=== PATIENT | female | born 1970 | race Caucasian/White ===

== ENCOUNTER 2023-02-03 09:10 | Outpatient (OUT) | payer BC, SELFPAY ==
[2023-02-03 09:29] LABS: Estimated Average Glucose 94 mg/dL; Glycohemoglobin A1C 4.9 % (4.5-6.2)
[2023-02-03 09:30] LABS: Basophils Percent Auto 0.7 % (0.2-2.0); Eosinophils Absolute Auto 0.1 10^3/uL (0.0-0.7); Eosinophils Percent Auto 1.2 % (0.9-7.0); Hematocrit 43.4 % (36.0-48.0); Hemoglobin 14.9 g/dL (12.0-16.0); Immature Granulocytes Abs Auto 0.01 10^3/uL (0.00-0.03); Immature Granulocytes Pct Auto 0.2 % (0.0-0.5); Lymphocytes Absolute Auto 1.2 10^3/uL (1.2-3.8); Lymphocytes Percent Auto 28.9 % (20.5-60.0); Mean Corpuscular HGB Conc 34.3 g/dL (29.9-35.2); Mean Corpuscular Hemoglobin 34.3 pg (26.7-34.0); Mean Platelet Volume 9.5 fL (9.5-13.5); Monocytes Absolute Auto 0.5 10^3/uL (0.3-0.8); Monocytes Percent Auto 11.2 % (1.7-12.0); Neutrophils Absolute Auto 2.4 10^3/uL (1.4-6.5); Neutrophils Percent Auto 57.8 % (43.0-75.0); Platelet Count 322 10^3/uL (150-450); Red Blood Count 4.34 10^6/uL (4.20-5.40); Red Cell Distribution Width 11.9 % (11.0-15.0); White Blood Count 4.2 10^3/uL (4.0-11.0)
[2023-02-03 10:00] LABS: Alanine Aminotransferase 64 U/L (14-59); Albumin Globulin Ratio 1.1; Albumin Level 4.2 g/dL (3.4-5.0); Alkaline Phosphatase 57 U/L (46-116); Anion Gap 14.2; Aspartate Amino Transferase 53 U/L (15-37); BUN Creatinine Ratio 18.8; Bilirubin Total 0.6 mg/dL (0.2-1.0); Calcium 9.3 mg/dL (8.5-10.1); Chloride 100 mmol/L (98-107); Estimated GFR (African America >60 (>=60); Estimated GFR (Non-African Ame >60 (>=60); Globulin 3.8 g/dL; Glucose 111 mg/dL (74-106); Potassium 4.2 mmol/L (3.5-5.1); Sodium 137 mmol/L (136-145)
== END 2023-02-03 09:11 | disposition home or self-care (01) ==
LOC: LAB 09:10
PROVIDERS: PCP Family Medicine; Visit Provider Family Medicine
DX: Z00.00 Encounter for general adult medical examination without abnormal findings (principal)
CPT/HCPCS: 36415; 80053; 83036; 84443; 85025

== ENCOUNTER 2023-02-03 09:18 | Outpatient (OUT) | payer BC, SELFPAY ==
--- NOTE | 2023-02-03 09:27 | MM_ITS ---
Patient: ADELAIDE HERNANDEZ Exam Date: 02/03/2023 : 1970 Gender:F Ordering : DR Rachna Sepulveda M.D. Admission #: [id number] Family : Order #: [id number] CLICK HERE TO VIEW EXAM RADIOLOGY REPORT PROCEDURE: MM TOMOSYNTHESIS SCREENING BI COMPARISON: MG MAMM SCREEN 3D SARATH CAD, 01/31/2022. MG MAMM SCREEN SARATH W CAD, 05/14/2020. MG MAMM SCREEN SARATH W CAD, 05/18/2018. MG MAMM SARATH SCRN W CAD DIG, 03/30/2014. INDICATIONS: Screening Calculator Name NCI Breast Cancer Risk Assessment Tool 5 Year Breast Cancer Risk 0.90% Lifetime Breast Cancer Risk 6.90% Personal Breast Cancer No Personal Ovarian Cancer No Treatments None Family Cancers Father with lung cancer at age 56. LOCATION: [facility] BREAST COMPOSITION: Extremely dense, which lowers the sensitivity of mammography. FINDINGS: DIAGNOSTIC CATEGORY 2--BENIGN FINDING: RIGHT BREAST: No significant suspicious finding. Scattered benign-appearing calcifications are present. No significant change has occurred. LEFT BREAST: No significant suspicious finding. No significant change has occurred. RECOMMENDATIONS: ROUTINE MAMMOGRAM AND CLINICAL EVALUATION IN 12 MONTHS. PLEASE NOTE: A NORMAL MAMMOGRAM DOES NOT EXCLUDE THE POSSIBILITY OF BREAST CANCER. A CLINICALLY SUSPICIOUS PALPABLE LUMP SHOULD BE BIOPSIED. Dictated by: Anish Barriga M.D. on 02/04/2023 at 12:39 Approved by: Anish Barriga M.D. on 02/04/2023 at 12:51
== END 2023-02-03 09:19 | disposition home or self-care (01) ==
LOC: MAMMO 09:18
PROVIDERS: PCP Family Medicine; Visit Provider Family Medicine
DX: Z00.00 Encounter for general adult medical examination without abnormal findings (principal); Z12.31 Encounter for screening mammogram for malignant neoplasm of breast; Z80.1 Family history of malignant neoplasm of trachea, bronchus and lung
CPT/HCPCS: 36415; 77063; 77067; 80053; 83036; 84443; 85025

== ENCOUNTER 2023-04-30 08:00 | Outpatient (OUT) | payer BC, SELFPAY ==
[2023-04-30] MEDS: COVID VAC 23-24(12UP)MODERNA/PF 50 MCG/0.5 ML VIAL IM (16:00)
== END 2023-04-30 08:01 | disposition home or self-care (01) ==
LOC: VACCLI 05-29 16:22
PROVIDERS: PCP Family Medicine
DX: Z23 Encounter for immunization (principal)
CPT/HCPCS: 90480; 91322

== ENCOUNTER 2024-02-09 09:28 | Outpatient (OUT) | payer BC, SELFPAY ==
--- OUTSIDE RECORDS SUMMARY | 2024-02-09 09:33 | XMS_ITS | CCD ---
Author Organization [facility] Care Team Providers Care Biological Technical Officer Name Role Phone DR RACHNA ARCEO Primary Care Unavailable [facility], DR LEONARD Attending Unavailable MISC, DR LEONARD Admitting Unavailable ADIS, DR RACHNA Mccurdy Consulting Unavailable ADIS, DR RACHNA Mccurdy Primary Care Unavailable SEEMA, DR ANISH Almendarez Consulting Unavailable ADIS, DR RACHNA Mccurdy Admitting Unavailable ADIS, DR RACHNA Mccurdy Attending Unavailable ADIS, DR RACHNA Mccurdy Consulting Unavailable LAVONNE, DR CANTU Attending Unavailable LAVONNE, DR CANTU Consulting Unavailable LAVONNE, DR CANTU Admitting Unavailable ADIS, DR RACHNA Mccurdy Primary Care Unavailable Rachna Arceo JUAN TRACY Attending Unavailable Allergies Allergy Classification Reported Allergen(s) Allergy Type Date of Onset Reaction(s) Facility (2 sources) patient allergy list reviewed by nurse or physicia Propensity to adverse reactions Comment:Done [facility] Other (2 sources) Allergies Reconciled Propensity to adverse reactions Unknown [facility] Other Medications Current Medications Medication Drug Class(es) Dates Sig (Normalized) Sig (Original) cloNIDine hydrochloride 0.1 mg oral tablet (4 sources) Central alpha-2 Adrenergic Agonist Start: 09-04-2023 End: 09-24-2023 take 1 tablet by mouth once daily Clonidine Hcl Active 0.1 MG PO Daily 90 September 24, 2023 3:42pm Free[employer]: TAKE 1 TABLET BY MOUTH EVERY DAY; Note: Source Status: Start; Refills: 3; Qty: 90 Tablet; Provider: Adis Briscoe ( ) Start: 02-12-2022 take 1 tablet by jordyn th once daily cloNIDine HCl 0.1MG cloNIDine HCl 0.1MG, 1 (one) Tablet daily # 90, 02/12/2022, Ref. x3. Active Oral daily for 90 *Pick strength-form from [facility] for eRX* Jan, Active escitalopram 20 mg oral tablet (4 sources) Serotonin Reuptake Inhibitor Start: 09-04-2023 End: 09-24-2023 take 1 tablet by mouth once daily Escitalopram Oxalate Active 20 MG PO Daily 90 September 24, 2023 3:43pm [employer]: TAKE 1 TABLET BY MOUTH EVERY DAY; Note: Source Status: Start; Refills: 3; Qty: 90 Tablet; Provider: Adis Briscoe ( ) Start: 02-21-2022 take 1 tablet by jordyn th once daily Lexapro 20MG Lexapro 20MG, 1 (one) Tablet daily # 90, 02/21/2022, Ref. x3. Active Oral daily for 90 *Pick strength-form from [facility] for eRX* Feb, Active fluconazole 150 mg oral tablet (2 sources) Azole Antifungal Diflucan 150 MG 1 tablet Orally for 10 days Active ibuprofen 800 mg oral tablet (5 sources) Nonsteroidal Anti-inflammatory Drug Start: take 1 tablet by mouth three times daily as needed Ibuprofen Active 0 .ROUTE .COMPLEX 270 November 25, 2023 1:01pm TAKE 1 TABLET BY MOUTH 3 TIMES DAILY NEEDED Start: 09-04-2023 End: 11-25-2023 take 1 tablet by mouth three times daily as needed Ibuprofen Discontinued 800 MG PO Three times daily 270 September 24, 2023 3:43pm November 25, 2023 1:02pm [employer]: Ibuprofen 800MG, 1 (one) Tablet three times daily, as needed # 270, 01/02/2022, Ref. x3. Active Oral three times daily, as needed; Note: Source Status: Taking*Pick strength-form from [facility] for eRX*; Refills: 270; Provider: Adis Briscoe ( ) Start: 01-02-2022 take 1 tablet by jordyn th three times daily as needed Ibuprofen 800MG Ibuprofen 800MG, 1 (one) Tablet three times daily, as needed # 270, 01/02/2022, Ref. x3. Active Oral three times daily, as needed for 90 *Pick strength-form from [employer] for eRX* Dec, Active losartan potassium 100 mg oral tablet (4 sources) Angiotensin 2 Receptor Shoaib Start: 09-04-2023 End: 09-24-2023 take 100 mg by mouth once daily Losartan Active 100 MG PO Daily September 24, 2023 3:43pm Start: 01-22-2021 take 1 tablet by jordyn th once daily Losartan Potassium 100MG Losartan Potassium 100MG, 1 (one) Tablet daily # 90, 01/22/2021, Ref. x3. Active Oral daily for 90 *Pick strength-form from [facility] for eRX* Jan, Active Multivitamin preparation (2 sources) Start: 02-12-2022 Multivitamin Multivitamin( Oral 1 daily ) Active -Hx Entry Oral daily for 0 *Pick strength-form from [facility] for eRX* Jan, Active pantoprazole 40 mg delayed release oral tablet (3 sources) Proton Pump Inhibitor Start: 09-04-2023 End: 09-24-2023 take 1 tablet by mouth once daily Pantoprazole Active 40 MG PO Daily September 24, 2023 3:43pm [employer]: TAKE 1 TABLET BY MOUTH EVERY DAY FOR 90 DAYS; Note: Source Status: Start; Refills: 3; Qty: 90 Tablet; Provider: Adis Briscoe ( ) take 1 tablet by jordyn th every twenty-four hours Pantoprazole Sodium 40 MG 1 tablet Orall y Once a day for 90 days Active verapamil hydrochloride 120 mg extended release oral tablet (4 sources) Calcium Channel Shoaib Start: 09-04-2023 End: 09-24-2023 take 1 tablet by mouth once daily Verapamil Active 120 MG PO Daily September 24, 2023 3:43pm [employer]: TAKE 1 TABLET BY MOUTH EVERY DAY; Note: Source Status: Start; Refills: 3; Qty: 90 Tablet; Provider: Adis Briscoe ( ) Start: 02-12-2022 take 1 tablet by jordyn th once daily Verapamil HCl ER 120MG Verapamil HCl ER 120MG, 1 Tablet daily # 90, 02/12/2022, Ref. x3. Active Oral daily for 90 *Pick strength-form from [employer] for eRX* 31 Aug, 2022 Active Problems Active Problems Problem Classification Problem Date Documented Da te Episodic/Chronic Anxiety disorders (2 sources) Anxiety disorder; Translations: [Anxiety disorder, unspecified] Chronic Complications of surgical procedures or medical care (2 sources) Symptomatic postprocedural ovarian failure; 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] Chronic Complications of surgical procedures or medical care (2 sources) Other complications of procedures, not elsewhere classified, initial encounter; Translations: [Oth complications of procedures, NEC, init] Episodic Essential hypertension (4 sources) Essential hypertension; Translations: [Essential (primary) hypertension] Onset: 7 Chronic Menopausal disorders (4 sources) Premenopausal menorrhagia; Translations: [Excessive bleeding in the premenopausal period] Resolved: 0 Chronic Miscellaneous mental health disorders (2 sources) Primary insomnia; Translations: [Primary insomnia] Chronic Osteoarthritis (2 sources) Osteoarthritis; Translations: [Unspecified osteoarthritis, unspecified site] Chronic Other aftercare (2 sources) History and physical examination, follow-up; Translations: [Encounter for follow-up examination after completed treatment for conditions other than malignant neoplasm] Episodic Other circulatory disease (2 sources) H/O: cardiovascular disease; Translations: [Personal history of other diseases of the circulatory system] Episodic Other screening for suspected conditions (not mental disorders or infectious disease) (7 sources) Encounter for screening mammogram for malignant neoplasm of breast; Translations: [Patient encounter status] Onset: 2 Episodic Phlebitis; thrombophlebitis and thromboembolism (4 sources) Thrombophlebitis of superficial veins of lower extremity; Translations: [Phlebitis and thrombophlebitis of superficial vessels of left lower extremity] Episodic Residual codes; unclassified (1 source) Family history of malignant neoplasm of trachea, bronchus and lung; Translations: [FAM HX MALIG NEOPLSM TRACH BRON LNG] Onset: 2 Episodic Residual codes; unclassified (2 sources) Tobacco user; Translations: [Tobacco use] Episodic Residual codes; unclassified (2 sources) Normal body mass index; Translations: [Body mass index (BMI) 24.0-24.9, adult] Episodic Residual codes; unclassified (2 sources) Acquired absence of ovary; Translations: [Acquired absence of ovaries, unilateral] Episodic Varicose veins of lower extremity (2 sources) Pain co-occurrent and due to varicose veins of bilateral legs; Translations: [Varicose veins of bilateral lower extremities with pain] Episodic Past or Other Problems Problem Classification Problem Date Documented Date Episodic/Chronic Acute bronchitis (2 sources) Acute bronchitis; Translations: [Acute bronchitis, unspecified] Onset: 08-16-2018 Episodic Benign neoplasm of uterus (2 sources) Uterine leiomyoma; Translations: [Leiomyoma of uterus, unspecified] Resolved: 01-05-2020 Episodic Cardiac dysrhythmias (2 sources) Tachycardia; Translations: [Tachycardia, unspecified] Onset: 11-19-2016 Episodic Menstrual disorders (4 sources) Intermenstrual bleeding - irregular; Translations: [Excessive and frequent menstruation with irregular cycle] Resolved: 01-05-2020 Chronic Nonspecific chest pain (2 sources) Chest pain; Translations: [Chest pain, unspecified] Onset: 02-08-2015 Episodic Other upper respiratory infections (2 sources) Acute maxillary sinusitis; Translations: [Acute recurrent maxillary sinusitis] Onset: 08-16-2018 Episodic Residual codes; unclassified (2 sources) Postprocedural state finding; Translations: [Other specified postprocedural states] Resolved: 03-02-2020 Episodic Unclassified (1 source) Vaginal yeast infection B37.31 Results Test Name Value Interpretation Reference Range Facil ity MG MAMM SCREEN 3D SARATH CADon 01-31-2022 MG MAMM SCREEN 3D SARATH CAD Patient: ADELAIDE HERNANDEZ Exam Date: 01/31/2022 : 1970 Gender:F Ordering : DR RACHNA ARCEO M.D. Admission #: [id number] Family : Order #: [id number] CLICK HERE TO VIEW EXAM RADIOLOGY REPORT PROCEDURE: MAMMOGRAM SCREENING 3D BILATERAL CAD COMPARISON: MG MAMM SCREEN SARATH W CAD, 05/14/2020. MG MAMM SCREEN SARATH W CAD, 05/18/2018. INDICATIONS: Screening mammography Calculator Name NCI Breast Cancer Risk Assessment Tool 5 Year Breast Cancer Risk 0.90% Lifetime Breast Cancer Risk 7.00% Personal Breast Cancer No Personal Ovarian Cancer No Treatments None Family Cancers Father with lung cancer at age 56. LOCATION: [facility] BREAST COMPOSITION: Extremely dense, which lowers the sensitivity of mammography. FINDINGS: DIAGNOSTIC CATEGORY 2--BENIGN FINDING: RIGHT BREAST: No significant suspicious finding. Scattered benign-appearing calcifications are present. No significant change has occurred. LEFT BREAST: No significant suspicious finding. No significant change has occurred. RECOMMENDATIONS: ROUTINE MAMMOGRAM AND CLINICAL EVALUATION IN 12 MONTHS. PLEASE NOTE: A NORMAL MAMMOGRAM DOES NOT EXCLUDE THE POSSIBILITY OF BREAST CANCER. A CLINICALLY SUSPICIOUS PALPABLE LUMP SHOULD BE BIOPSIED. Dictated by: Anish Barriga M.D. on 01/31/2022 at 11:47 Approved by: Anish Barriga M.D. on 01/31/2022 at 12:[address] [facility] CBC AUTO DIFFon 01-23-2022 BASO # 0.1 103/ul Normal 0.0-0.1 [facility] Comment on above: Performed By: #### C BC #### [facility] [address] [place] [address] Dr. Maria L Spear Basophils/100 WBC (Bld) 0.8 % Normal 0.2-2.0 [facility] Comment on above: Performed By: #### C BC #### [facility] [address] [place] [address] Dr. Maira L Spear EO # 0.2 103/ul Normal 0.0-0.7 [facility] Comment on above: Performed By: #### C BC #### [facility] [address] [place] [address] Dr. Maria L Spear Eosinophils/100 WBC (Bld) 2.5 % Normal 0.9-7.0 [facility] Comment on above: Performed By: #### C BC #### [facility] [address] [place] [address] Dr. Maria L Spear Erythrocyte distribution width (RBC) [Ratio] 12.2 % Normal 11.0-15.0 [facility] Comment on above: Performed By: #### C BC #### [facility] [address] [place] [address] Dr. Maria L Spear Hematocrit (Bld) [Volume fraction] 44.7 % Normal 36.0-48.0 [facility] Comment on above: Performed By: #### C BC #### [facility] [address] [place] [address] Dr. Maria L Spear Hemoglobin (Bld) [Mass/Vol] 15.2 g/dL Normal 12.0-16.0 [facility] Comment on above: Performed By: #### C BC #### [facility] [address] [place] [address] Dr. Maria L Spear IG # 0.02 10e3/ul Normal 0.00-0.03 [facility] Comment on above: Performed By: #### C BC #### [facility] [address] [place] [address] Dr. Maria L Spear IG % 0.3 % Normal 0.0-0.5 [facility] Comment on above: Performed By: #### C BC #### [facility] [address] [place] [address] Dr. Maria L Spear LYMPH # 1.6 103/ul Normal 1.2-3.8 [facility] Comment on above: Performed By: #### C BC #### [facility] [address] [place] [address] Dr. Maria L Spear Lymphocytes/100 WBC (Bld) 26.9 % Normal 20.5-60.0 [facility] Comment on above: Performed By: #### C BC #### [facility] [address] [place] [address] Dr. Maria L Spear MANUAL DIFF REQ NO Normal [facility] Comment on above: Performed By: #### C BC #### [facility] [address] [place] [address] Dr. Maria L Spear MCH (RBC) [Entitic mass] 34.9 pg Critically high 26.7-34.0 [facility] Comment on above: Performed By: #### C BC #### [facility] [address] [place] [address] Dr. Maria L Spear MCHC (RBC) [Mass/Vol] 34.0 g/dL Normal 29.9-35.2 [facility] Comment on above: Performed By: #### C BC #### [facility] [address] [place] [address] Dr. Maria L Spear MCV (RBC) [Entitic vol] 102.8 fL Critically high 81.0-99.0 [facility] Comment on above: Performed By: #### C BC #### [facility] [address] [place] [address] Dr. Maria L Spear MONO # 0.6 103/ul Normal 0.3-0.8 [facility] Comment on above: Performed By: #### C BC #### [facility] [address] [place] [address] Dr. Maria L Spear Monocytes/100 WBC (Bld) 10.7 % Normal 1.7-12.0 [facility] Comment on above: Performed By: #### C BC #### [facility] [address] [place] [address] Dr. Maria L Spear NEUT # 3.5 103/ul Normal 1.4-6.5 [facility] Comment on above: Performed By: #### C BC #### [facility] [address] [place] [address] Dr. Maria L Spear Neutrophils/100 WBC (Bld) 58.8 % Normal 43.0-75.0 [facility] Comment on above: Performed By: #### C BC #### [facility] [address] [place] [address] Dr. Maria L Spear Platelet mean volume (Bld) [Entitic vol] 9.8 fL Normal 9.5-13.5 [facility] Comment on above: Performed By: #### C BC #### [facility] [address] [place] [address] Dr. Maria L Spear PLT 281 103/ul Normal 150-[address] [facility] Comment on above: Performed By: #### C BC #### [facility] [address] [place] [address] Dr. Maria L Spear RBC 4.35 106/ul Normal 4.20-5.[address] [facility] Comment on above: Performed By: #### C BC #### [facility] [address] [place] [address] Dr. Maria L Spear WBC 6.0 103/ul Normal 4.0-11.[address] [facility] Comment on above: Performed By: #### C BC #### [facility] [address] [place] [address] Dr. Maria L Spear GLYCOHEMOGLOBIN A1Con 2021 ADA RECOMMENDATION SEE BELOW Normal [facility] Comment on above: Result Comment: ADA RECOMMENDED LIMIT 4.0 - 6.0 ADA THERAPEUTIC TARGET < 7.0 ACTION SUGGESTED > 7.0 Performed By: #### A 1C #### [facility] [address] [place] [address] Dr. Maria L Spear Glucose [Mass/Vol] 94 mg/dL Normal [facility] Comment on above: Performed By: #### A 1C #### [facility] [address] [place] [address] Dr. Maria L Spear HbA1c (Bld) [Mass fraction] 4.9 % Normal 4.5-6.2 [facility] Comment on above: Performed By: #### A 1C #### [facility] [address] [place] [address] Dr. Maria L Spear LIPID PROFILEon 01-23-2022 CHOL-HDL RATIO NORM SEE BELOW Normal [facility] Comment on above: Result Comment: 3.3 - 4.4 LOW RISK 4.4 - 7.1 AVERAGE RISK 7.1 - 11.0 MODERATE RISK >11.0 HIGH RISK Performed By: #### C MP, LIPID, TSH #### [facility] [address] [place] [address] Dr. Maria L Spear Cholesterol [Mass/Vol] 217 mg/dL Critically high <=200 [facility] Comment on above: Performed By: #### C MP, LIPID, TSH #### [facility] [address] [place] [address] Dr. Maria L Spaer Cholesterol in HDL [Mass/Vol] 65 mg/dL Critically high 40-60 [facility] Comment on above: Performed By: #### C MP, LIPID, TSH #### [facility] [address] [place] [address] Dr. Marai L Spear Cholesterol in LDL [Mass/Vol] 137.4 mg/dL Normal [facility] Comment on above: Performed By: #### C MP, LIPID, TSH #### [facility] [address] [address] [address] Maria L Spear Cholesterol.total/Cho lesterol in HDL [Mass ratio] 3.3 {ratio} Normal [facility] Comment on above: Performed By: #### C MP, LIPID, TSH #### [facility] [address] [address] [address] Maria L Spear HDL NORMAL > or = 60 mg/dl - LOW CARDIOVASCULAR RISK <40 mg/dl - HIGH CARDIOVASCULAR RISK Normal [facility] Comment on above: Performed By: #### C MP, LIPID, TSH #### [facility] [address] [address] [address] Maria L Spear LDL CALC NORMAL SEE BELOW Normal [facility] Comment on above: Result Comment: <100 mg/dl OPTIMAL 100 - 129 mg/dl NEAR OR ABOVE OPTIMAL 130 - 159 mg/dl BORDERLINE HIGH 160 - 189 mg/dl HIGH >190 mg/dl VERY HIGH Performed By: #### C MP, LIPID, TSH #### [facility] [address] [address] [address] Maria L Spear Triglyceride [Mass/Vol] 73 mg/dL Normal <=150 [facility] Comment on above: Performed By: #### C MP, LIPID, TSH #### [facility] [address] [place] [address] Dr. Maria L Spear VLDL CALC 14.6 mg/dL Normal [facility] Comment on above: Performed By: #### C MP, LIPID, TSH #### [facility] [address] [address] [address] Maria L Spear PROF 14(COMP METB)on 022 Albumin [Mass/Vol] 3.9 g/dL Normal 3.4-5.0 [facility] Comment on above: Performed By: #### C MP, LIPID, TSH #### [facility] [address] [place] [address] Dr. Maria L Spear Albumin/Globulin [Mass ratio] 1.1 {ratio} Normal [facility] Comment on above: Performed By: #### C MP, LIPID, TSH #### [facility] [address] [address] [address] Maria L Spear ALP [Catalytic activity/Vol] 64 U/L Normal 46-116 [facility] Comment on above: Performed By: #### C MP, LIPID, TSH #### [facility] [address] [address] [address] Maria L Spear ALT [Catalytic activity/Vol] 34 U/L Normal 14-59 [facility] Comment on above: Performed By: #### C MP, LIPID, TSH #### [facility] [address] [address] [address] Maria L Spear Anion gap [Moles/Vol] 11.7 mmol/L Normal [facility] Comment on above: Performed By: #### C MP, LIPID, TSH #### [facility] [address] [address] [address] Maria L Spear AST [Catalytic activity/Vol] 22 U/L Normal 15-37 [facility] Comment on above: Performed By: #### C MP, LIPID, TSH #### [facility] [address] [address] [address] Maria L Spear Bilirubin [Mass/Vol] 0.6 mg/dL Normal 0.2-1.0 [facility] Comment on above: Performed By: #### C MP, LIPID, TSH #### [facility] [address] [address] [address] Maria L Spear Calcium [Mass/Vol] 8.9 mg/dL Normal 8.5-10.1 [facility] Comment on above: Performed By: #### C MP, LIPID, TSH #### [facility] [address] [address] [address] Maria L Spear Chloride [Moles/Vol] 102 mmol/L Normal 98-107 [facility] Comment on above: Performed By: #### C MP, LIPID, TSH #### [facility] [address] [address] [address] Maria L Spear CO2 [Moles/Vol] 28.4 mmol/L Normal 21.0-32.0 [facility] Comment on above: Performed By: #### C MP, LIPID, TSH #### [facility] [address] [address] [address] Maria L Spear Creatinine [Mass/Vol] 0.77 mg/dL Normal 0.55-1.02 [facility] Comment on above: Performed By: #### C MP, LIPID, TSH #### [facility] [address] [address] [address] Maria L Spear EGFR-AF SALVADOREAN >60 Normal >=60 [facility] Comment on above: Performed By: #### C MP, LIPID, TSH #### [facility] [address] [address] [address] Maria L Spear EGFR-NON AF SALVADOREAN >60 Normal >=60 [facility] Comment on above: Performed By: #### C MP, LIPID, TSH #### [facility] [address] [address] [address] Maria L Spear Globulin (S) [Mass/Vol] 3.5 g/dL Normal [facility] Comment on above: Performed By: #### C MP, LIPID, TSH #### [facility] [address] [address] [address] Maria L Spear Glucose [Mass/Vol] 104 mg/dL Normal 74-106 [facility] Comment on above: Performed By: #### C MP, LIPID, TSH #### [facility] [address] [address] [address] Maria L Spear Potassium [Moles/Vol] 4.1 mmol/L Normal 3.5-5.1 [facility] Comment on above: Performed By: #### C MP, LIPID, TSH #### [facility] [address] [address] [address] Maria L Spear Protein [Mass/Vol] 7.4 g/dL Normal 6.4-8.2 [facility] Comment on above: Performed By: #### C MP, LIPID, TSH #### [facility] [address] [address] [address] Maria L Spear Sodium [Moles/Vol] 138 mmol/L Normal 136-145 [facility] Comment on above: Performed By: #### C MP, LIPID, TSH #### [facility] [address] [address] [address] Maria L Spear Urea nitrogen [Mass/Vol] 13.0 mg/dL Normal 7.0-18.0 [facility] Comment on above: Performed By: #### C MP, LIPID, TSH #### [facility] [address] [address] [address] Maria L Spear Urea nitrogen/Creatinine [Mass ratio] 16.9 mg/mg Normal [facility] Comment on above: Performed By: #### C MP, LIPID, TSH #### [facility] [address] [address] [address] Maria L Spear TSHon 01-23-2022 TSH 2.191 uIU/mL Normal 0.358-3.740 [facility] Comment on above: Performed By: #### C MP, LIPID, TSH #### [facility] [address] [address] [address] Maria L Spear Vital Signs Date Time Vital Sign Value Performing Clinician Faci lity 11-30-2023 09:58-0400 Body height 160.02 cm [facility] 11-30-2023 09:58-0400 Body mass index (BMI) [Ratio] 23.6 kg/m2 [facility] 11-30-2023 09:58-0400 Body weight 60.32 kg [facility] 11-30-2023 09:58-0400 Diastolic blood pressure 87 mm[Hg] [facility] 11-30-2023 09:58-0400 Heart rate 92 /min [facility] 11-30-2023 09:58-0400 Systolic blood pressure 131 mm[Hg] [facility] 01-26-2023 09:00-0400 Body height 160.02 cm Rachna Arcoe Other [facility] Other 01-26-2023 09:00-0400 Body mass index (BMI) [Ratio] 23.2 kg/m2 Rachna Arceo Other [facility] Other 01-26-2023 09:00-0400 Body weight 59.42 kg Rachna Arceo Other [facility] Other 01-26-2023 09:00-0400 Diastolic blood pressure 72 mm[Hg] Rachna Arceo Other [facility] Other 01-26-2023 09:00-0400 Systolic blood pressure 118 mm[Hg] Rachna Arceo Other [facility] Other Encounters Encounter Date Encounter Type Care Provider Facility Start: 12-24-2023 End: 12-24-2023 ambulatory JUAN TRACY Not Available Start: 11-30-2023 Patient encounter status [facility] Start: 11-30-2023 End: 11-30-2023 ambulatory [facility] Work Phone: Start: 11-30-2023 End: 11-30-2023 Encounter for general adult medical examination without abnormal findings [facility] Start: 11-30-2023 End: 11-30-2023 Patient encounter procedure [facility] Work Phone: Start: 09-04-2023 Non-patient / Non-visit [facility] Work Phone: Start: 01-26-2023 End: 01-26-2023 ambulatory Rachna Arceo Other [facility] Other Start: 01-26-2023 Encounter for genera l adult medical examination without abnormal findings Rachna Arceo [facility] Start: 01-26-2023 Periodic preventive med est patient 40-64yrs Rachna Arceo [facility] Start: 01-26-2023 Telephone encounter Rachna Arceo [facility] Start: 04-10-2022 End: 04-11-[address] ALONDRA BANERJEE Facility:[facility] Start: 01-31-2022 End: 02-01-[address] RACHNA ARCEO Facility:[facility] Start: 01-24-2022 Encounter for genera l adult medical examination without abnormal findings DR DOCTOR OLSEN [facility] Start: 01-23-2022 End: 01-24-[address] RACHNA ARCEO Facility:[facility] Start: 01-23-2022 End: 01-24-2022 Encounter for general adult medical examination without abnormal findings DR RACHNA ARCEO Facility:[facility] Start: 12-26-2021 Adult health examination Joaquina Arceo Other [facility] Other Start: 01-19-2020 End: 01-05-2020 Gynecological examination normal Rachna Arceo Other [facility] Other Procedures Date Procedure Procedure Detail Performing Clinician Start: 11-30-2009 Counseling Rachna biggs Other End: 01-05-2020 Counseling Rachna Arceo Other Hysterectomy Rachna Arceo Other End: 01-05-2020 Screening for malignant neoplasm of breast Rachna Arceo Other Screening for malign ant neoplasm of breast Rachna Arceo Other Screening for malign ant neoplasm of colon Rachna Arceo Other Plan of Treatment Date Care Activity Detail Author Comprehensive metabo lic 2000 panel - Serum or Plasma [facility] enter MG Breast - bilateral Screening [facility] Payers Date Payer Category Payer [facility] [id number] 06-15-2019 Unknown [id number] 1970 Unknown [id number] 1970 Unknown [id number] 1970 Unknown [id number] 06-15-1961 Self-pay Unknown [id number] Social History Date Type Detail Facility Unknown if ever smoked [facility] Other Sex Assigned At Sex Assigned At Bir th [facility] Other Start: 1970 Sex Assigned At Female [facility] Evaluation note 01-26-2023 Note Date & Type Note Facility 01-26-2023 Evaluation note Encounter Date Diagnosis Assessment Notes Jan, Well adult exam (ICD-10 - Z00.00) We have discussed the necessity of following up with PCP regularly as well as specialists, as needed. Discussed F/U with dentistry and optometry at least yearly. Discussed all preventative measures/ cancer screenings as applicable to this patient. Emphasized the importance of a reduced fat, low carb diet to promote heart health and controlled blood sugars. Reviewed social history and ensured patient is safe within the home today. Pt denies any abuse of alcohol, nicotine, caffeine or recreational drugs. I have ensured patient is of stable mental and physical health today. We have discussed appropriate F/U schedule as well as blood work and vaccinations that apply. All questions answered and patient is sent home pleased, without concerns. Jan, Screening mammogram, encounter for (ICD-10 - Z12.31) Jan, Vaginal yeast infection (ICD-10 - B37.31) Will treat empirically for yeast, discharge and sx reported consistent with that of vaginal candidiasis. Instructed patient to take as directed, advised that she should feel improvement in about 2 days. May repeat course in 72 hours if sx persist as significant amount of d/c and irritation present today. [facility] Other Evaluation note Note Date & Type Note Facility Evaluation note No Information [facility] Other Evaluation note Note Date & Type Note Facility Evaluation note Diagnosis Onset Date Screening mammogram for breast cancer acute Wellness examination [facility] Work Phone: History general Narrative - Reported Note Date & Type Note Facility History general Narrative - Reported Type Medical History Problem Title : Cere bral Bleed, Problem Status : Active,, Medical History Problem Title : ches t wall assessment, physical exam, Problem Description : chest wall assessment, physical exam, Problem Comment : tenderness and bruising of right lower back and limited range of motion in R shoulder. , Problem Status : Active,, Medical History Problem Title : comp liance with medical treatment, Problem Description : compliance with medical treatment, Problem Comment : Done, Problem Status : Active,, Medical History Problem Title : Depr ession Screening, Problem Description : Depression Screening, Problem Comment : Negative, Problem Status : Active,, Medical History Problem Title : Lase r Facial Rejuv. , Problem Status : Active,, Medical History Problem Title : Lase r Facial Rejuvination, Problem Status : Active,, Medical History Problem Title : MEDI SHERRY: No history of significant medical diseases, Problem Status : Inactive,, Medical History Problem Title : no k nown problems, Problem Description : no known problems, Problem Comment : F, Problem Status : Active,, Medical History Problem Title : past medical history E&M, Problem Description : past medical history E&M, Problem Comment : Cerebral hemorrhage 2011 HTN Paroxysmal SVT, Problem Status : Active,, Medical History Problem Title : past medical history reviewed, Problem Description : past medical history reviewed, Problem Comment : reviewed - no changes required, Problem Status : Active,, Medical History Problem Title : PHQ2 Questionairre Score, Problem Description : PHQ2 Questionairre Score, Problem Comment : 0, Problem Status : Active,, Medical History Problem Title : PHQ9 Question One score, Problem Description : PHQ9 Question One score, Problem Comment : 0, Problem Status : Active,, Medical History Problem Title : PHQ9 Question Two score, Problem Description : PHQ9 Question Two score, Problem Comment : 0, Problem Status : Active,, Medical History Problem Title : Prob lems Reconciled, Problem Status : Active,, Medical History Problem Title : smok ing/tobacco cessation, patient education and counseling, Problem Description : smoking/tobacco cessation, patient education and counseling, Problem Comment : yes, Problem Status : Active,, Medical History Problem Title : MARTINEZ SFUSION HISTORY: No history of receiving blood or blood product transfusion(s), Problem Status : Inactive,, Medical History Problem Title : Vari cose veins, Problem Comment : Patient in this day for f/u evaluation along with left leg limited u/s following Varithena/microfoam chemical ablation 02/23/2020. Medical History Patient states she e xperienced small amount of pain post procedure to left calf area. Patient did not have to take any OTC pain medications stating It wasn't that bad. Medical History Assessment reveals s mall amount of ecchymotic area note to calf area which appears to be healing as expected. No open areas nor s/s of infection noted. Medical History Plan of care has bee n met at this time. Patient to f/u in the future as necessary., Problem Status : Active,, Medical History Problem Title : very low density lipoproteins, Problem Description : very low density lipoproteins, Problem Comment : 32.0, Problem Status : Active,, Surgical History Problem Title : Cerv ical Conization, Problem Status : Active, Surgical History Problem Title : EVLT , Problem Comment : 02/10/2020 Left GSV, Problem Status : Active, Attribute Title : Left, Surgical History Problem Title : EVLT , Problem Comment : 02/10/2020 Left GSV, Problem Status : Active, Attribute Title : Outpatient, Surgical History Problem Title : EVLT , Problem Comment : 02/02/2020 Right SSV, Problem Status : Active, Attribute Title : Outpatient, Surgical History Problem Title : EVLT , Problem Comment : 02/02/2020 Right SSV, Problem Status : Active, Attribute Title : Right, Surgical History Problem Title : Hyst eroscopy D&C, Problem Status : Active, Surgical History Problem Title : No p revious surgery, Problem Status : Inactive, Surgical History Problem Title : Nova Sure Ablation, Problem Status : Active, Surgical History Problem Title : Ooph orectomy; Unilateral, Problem Status : Active, Attribute Title : Right, Surgical History Problem Title : past surgical history reviewed, Problem Description : past surgical history reviewed, Problem Comment : reviewed - no changes required, Problem Status : Inactive, Surgical History Problem Title : Salp ingectomy; Bilateral, Problem Status : Active, Surgical History Problem Title : surg ical procedures, hx of, Problem Description : surgical procedures, hx of, Problem Comment : Hysteroscopy/Novasure 04/2017, Problem Status : Inactive, Surgical History Problem Title : surg ical procedures, hx of, Problem Description : surgical procedures, hx of, Problem Comment : Hysteroscopy/Novasure Ablation 04/2017 (Dr. Soto), Problem Status : Inactive, Surgical History Problem Title : surg ical procedures, hx of, Problem Description : surgical procedures, hx of, Problem Comment : None, Problem Status : Inactive, Surgical History Problem Title : [facility] - Dr. Jaimes , Problem Status : Active, Surgical History Problem Title : Vari thena/microfoam chemical ablation, Problem Status : Active, Attribute Title : Inpatient, [facility] Other Summary Purpose Family History No Family History Records Found Relationship Condition Age at Onset Recorded Date/T sam father Malignant neoplasm Unknown Unknown Not Specified Heart disease Unknown Advance Directives No Advanced Directives Records Found Advance Directive Response Recorded Date/ Time Advance Directives No November 29 9:51am Chief Complaint and Reason for Visit Chief Complaint Amb Documentation wellness Reason for Visit Screening mammogram for breast cancer Wellness examination Additional Source Comments INFORMATION SOURCE (unrecogn ized section and content) DATE CREATED AUTHOR 04/11/2022 [facility] DATE CREATED AUTHOR AUTHOR'S ORGANIZ ATION 12/31/2023 [facility] EPIC REASON FOR VISIT (unrecogniz ed section and content) [facility] Care Teams (unrecognized sec tion and content) Team Status: Active Member Role Status Dates Rachna Arceo MD Primary Care Provider Active Team Status: Active Member Role Status Dates Provider Conversion Primary Care Provider Active Start: September 04, 2023 Dionne Rangel LPN Attending Provider Active S tart: September 04, 2023 Team Status: Inactive Member Role Status Dates Rachna Arceo MD Primary Care Provide r, Attending Provider Active Start: November 30, 2023 End: November 30, 2023 Goals (unrecognized section and content) Goals may be documented in a n alternate section FOR RECORDS PERTAINING TO PATIENTS WHO ARE OR HAVE BEEN ENROLLED IN A CHEMICAL DEPENDENCY/SUBSTANCEABUSE PROGRAM, SOME INFORMATION MAY BE OMITTED. This clinical summary was aggregated from multiple sources. Caution should be exercised in using it in the provision of clinical care. This summary normalizes information from multiple sources, and as a consequence, information in this document may materially change the coding, format and clinical context of patient data. In addition, data may be omitted in some cases. CLINICAL DECISIONS SHOULD BE BASED ON THE PRIMARY CLINICAL RECORDS. [employer] provides no warranty or guarantee of the accuracy or completeness of information in this document.
[2024-02-09 09:58] LABS: Basophils Absolute Auto 0.1 10^3/uL (0.0-0.1); Eosinophils Absolute Auto 0.1 10^3/uL (0.0-0.7); Eosinophils Percent Auto 1.6 % (0.9-7.0); Hematocrit 41.5 % (36.0-48.0); Hemoglobin 14.2 g/dL (12.0-16.0); Immature Granulocytes Abs Auto 0.02 10^3/uL (0.00-0.03); Immature Granulocytes Pct Auto 0.4 % (0.0-0.5); Lymphocytes Absolute Auto 1.3 10^3/uL (1.2-3.8); Lymphocytes Percent Auto 27.5 % (20.5-60.0); Mean Corpuscular HGB Conc 34.2 g/dL (29.9-35.2); Mean Corpuscular Hemoglobin 34.5 pg (26.7-34.0); Mean Platelet Volume 9.8 fL (9.5-13.5); Monocytes Absolute Auto 0.5 10^3/uL (0.3-0.8); Monocytes Percent Auto 9.6 % (1.7-12.0); Neutrophils Absolute Auto 2.9 10^3/uL (1.4-6.5); Neutrophils Percent Auto 59.9 % (43.0-75.0); Platelet Count 284 10^3/uL (150-450); Red Blood Count 4.11 10^6/uL (4.20-5.40); Red Cell Distribution Width 11.9 % (11.0-15.0); White Blood Count 4.9 10^3/uL (4.0-11.0)
[2024-02-09 10:32] LABS: Alanine Aminotransferase 22 U/L (14-59); Albumin Globulin Ratio 1.1; Alkaline Phosphatase 59 U/L (46-116); Anion Gap 15.8; Aspartate Amino Transferase 17 U/L (15-37); Bilirubin Total 0.6 mg/dL (0.2-1.0); Calcium 9.1 mg/dL (8.5-10.1); Carbon Dioxide 24.4 mmol/L (21.0-32.0); Chloride 102 mmol/L (98-107); Chol HDL Ratio 2.5; Cholesterol 244 mg/dL (<=200); Estimated GFR (African America >60 (>=60); Estimated GFR (Non-African Ame >60 (>=60); Globulin 3.7 g/dL; Glucose 102 mg/dL (74-106); HDL Cholesterol 98 mg/dL (40-60); Potassium 4.2 mmol/L (3.5-5.1); Sodium 138 mmol/L (136-145); Thyroid Stimulating Hormone 0.878 uIU/mL (0.358-3.740); Total Protein 7.7 g/dL (6.4-8.2); Triglycerides 61 mg/dL (<=150); VLDL CHOLESTEROL 12.2 mg/dL
== END 2024-02-09 09:29 | disposition home or self-care (01) ==
LOC: LAB 09:29
PROVIDERS: PCP Family Medicine; Visit Provider Family Medicine
DX: Z00.00 Encounter for general adult medical examination without abnormal findings (principal)
CPT/HCPCS: 36415; 80053; 80061; 84443; 85025

== ENCOUNTER 2024-02-09 09:44 | Outpatient (OUT) | payer BC, SELFPAY ==
--- NOTE | 2024-02-09 | MM_ITS ---
Patient Name: ADELAIDE HERNANDEZ MR#: [id number] : 1970 Exam Date: 02/09/2024 Ordering Doctor: DR Rachna Sepulveda M.D. RADIOLOGY REPORT PROCEDURE: MM TOMOSYNTHESIS SCREENING BI COMPARISON: MG MAMM SCREEN 3D SARATH CAD, 01/31/2022. MM TOMOSYNTHESIS SCREENING BI, 02/03/2023. INDICATIONS: Screening for malignant neoplasm Calculator Name NCI Breast Cancer Risk Assessment Tool 5 Year Breast Cancer Risk 1.00% Lifetime Breast Cancer Risk 6.70% Personal Breast Cancer No Personal Ovarian Cancer No Treatments None Family Cancers Father with lung cancer at age 56. LOCATION: [facility] BREAST COMPOSITION: The breasts are extremely dense, which lowers the sensitivity of mammography. FINDINGS: DIAGNOSTIC CATEGORY 2--BENIGN FINDING. NO CHANGE FROM COMPARISON. Scattered benign-appearing calcifications are present. Scattered benign-appearing lymph nodes are present. RIGHT BREAST: No significant suspicious finding. LEFT BREAST: No significant suspicious finding. RECOMMENDATIONS: ROUTINE MAMMOGRAM AND CLINICAL EVALUATION IN 12 MONTHS. PLEASE NOTE: A NORMAL MAMMOGRAM DOES NOT EXCLUDE THE POSSIBILITY OF BREAST CANCER. A CLINICALLY SUSPICIOUS PALPABLE LUMP SHOULD BE BIOPSIED. Dictated by: Slade Miles MD on 02/09/2024 at 10:16 Approved by: Slade Miles MD on 02/09/2024 at 10:17
--- OUTSIDE RECORDS SUMMARY | 2024-02-09 10:05 | XMS_ITS | CCD ---
Author Organization [facility] Care Team Providers Care Mud Jack Nozzleman Name Role Phone DR RACHNA ARCEO Primary Care Unavailable [facility], DR LEONARD Attending Unavailable [facility], DR LEONARD Admitting Unavailable [facility], DR RACHNA Mccurdy Consulting Unavailable ADIS, DR RACHNA Mccurdy Primary Care Unavailable [facility], DR ANISH Almendarez Consulting Unavailable [facility], DR RACHNA Mccurdy Admitting Unavailable ADIS, DR [...] or physicia Propensity to adverse reactions Comment:Done [facility] Other (2 sources) Allergies Reconciled Propensity to adverse reactions Unknown [facility] Other Medications Current Medications Medication Drug Class(es) [...] Oral daily for 90 *Pick strength-form from [facility] for eRX* Jan, Active escitalopram 20 mg [...] Oral daily for 90 *Pick strength-form from [facility] for eRX* Feb, Active fluconazole 150 mg [...] needed; Note: Source Status: Taking*Pick strength-form from [facility] for eRX*; Refills: 270; Provider: Adis Briscoe [...] Oral daily for 90 *Pick strength-form from [facility] for eRX* Jan, Active Multivitamin preparation (2 sources) Start: 02-12-2022 Multivitamin Multivitamin( Oral 1 daily ) Active -Hx Entry Oral daily for 0 *Pick strength-form from [facility] for eRX* Jan, Active pantoprazole 40 mg [...] Oral daily for 90 *Pick strength-form from [facility] for eRX* 31 Aug, 2022 Active Problems [...] : DR RACHNA ARCEO M.D. Admission #: [id number] Family : Order #: [id number] CLICK HERE TO VIEW EXAM RADIOLOGY REPORT [...] lung cancer at age 54. LOCATION: [facility] BREAST COMPOSITION: Extremely dense, which lowers the [...] M.D. on 01/31/2022 at 12:10 Normal [facility] CBC AUTO DIFFon 01-23-2022 BASO # 0.1 103/ul Normal 0.0-0.1 [facility] Comment on above: Performed By: #### C BC #### [facility] [address] [place] [address] Dr. Maria L Spear Basophils/100 WBC (Bld) 0.8 % Normal 0.2-2.0 [facility] Comment on above: Performed By: #### C BC #### [facility] [address] [place] [address] Dr. Maria L Spear EO # 0.2 103/ul Normal 0.0-0.7 [facility] Comment on above: Performed By: #### C BC #### [facility] [address] [place] [address] Dr. Maria L Spear Eosinophils/100 WBC (Bld) 2.5 % Normal 0.9-7.0 [facility] Comment on above: Performed By: #### C BC #### [facility] [address] [place] [address] Dr. Maria L Spear Erythrocyte distribution width (RBC) [Ratio] 12.2 % Normal 11.0-15.0 [facility] Comment on above: Performed By: #### C BC #### [facility] [address] [place] [address] Dr. Maria L Spear Hematocrit (Bld) [Volume fraction] 44.7 % Normal 36.0-48.0 [facility] Comment on above: Performed By: #### C BC #### [facility] [address] [place] [address] Dr. Maria L Spear Hemoglobin (Bld) [Mass/Vol] 15.2 g/dL Normal 12.0-16.0 [facility] Comment on above: Performed By: #### C BC #### [facility] [address] [place] [address] Dr. Maria L Spear IG # 0.02 10e3/ul Normal 0.00-0.03 [facility] Comment on above: Performed By: #### C BC #### [facility] [address] [place] [address] Dr. Maria L Spear IG % 0.3 % Normal 0.0-0.5 [facility] Comment on above: Performed By: #### C BC #### [facility] [address] [place] [address] Dr. Maria L Spear LYMPH # 1.6 103/ul Normal 1.2-3.8 [facility] Comment on above: Performed By: #### C BC #### [facility] [address] [place] [address] Dr. Maria L Spear Lymphocytes/100 WBC (Bld) 26.9 % Normal 20.5-60.0 [facility] Comment on above: Performed By: #### C BC #### [facility] [address] [place] [address] Dr. Maria L Spear MANUAL DIFF REQ NO Normal [facility] Comment on above: Performed By: #### C BC #### [facility] [address] [place] [address] Dr. Maria L Spear MCH (RBC) [Entitic mass] 34.9 pg Critically high 26.7-34.0 [facility] Comment on above: Performed By: #### C BC #### [facility] [address] [place] [address] Dr. Maria L Spear MCHC (RBC) [Mass/Vol] 34.0 g/dL Normal 29.9-35.2 [facility] Comment on above: Performed By: #### C BC #### [facility] [address] [place] [address] Dr. Maria L Spear MCV (RBC) [Entitic vol] 102.8 fL Critically high 81.0-99.0 [facility] Comment on above: Performed By: #### C BC #### [facility] [address] [place] [address] Dr. Maria L Spear MONO # 0.6 103/ul Normal 0.3-0.8 [facility] Comment on above: Performed By: #### C BC #### [facility] [address] [place] [address] Dr. Maria L Spear Monocytes/100 WBC (Bld) 10.7 % Normal 1.7-12.0 [facility] Comment on above: Performed By: #### C BC #### [facility] [address] [place] [address] Dr. Maria L Spear NEUT # 3.5 103/ul Normal 1.4-6.5 [facility] Comment on above: Performed By: #### C BC #### [facility] [address] [place] [address] Dr. Maria L Spear Neutrophils/100 WBC (Bld) 58.8 % Normal 43.0-75.0 [facility] Comment on above: Performed By: #### C BC #### [facility] [address] [place] [address] Dr. Maria L Spear Platelet mean volume (Bld) [Entitic vol] 9.8 fL Normal 9.5-13.5 [facility] Comment on above: Performed By: #### C BC #### [facility] [address] [place] [address] Dr. Maria L Spear PLT 281 103/ul Normal 150-450 [facility] Comment on above: Performed By: #### C BC #### [facility] [address] [place] [address] Dr. Maria L Spear RBC 4.35 106/ul Normal 4.20-5.40 [facility] Comment on above: Performed By: #### C BC #### [facility] [address] [place] [address] Dr. Maria L Spear WBC 6.0 103/ul Normal 4.0-11.0 [facility] Comment on above: Performed By: #### C BC #### [facility] [address] [place] [address] Dr. Maria L Spear GLYCOHEMOGLOBIN A1Con 2021 ADA RECOMMENDATION SEE BELOW Normal [facility] Comment on above: Result Comment: ADA RECOMMENDED LIMIT 4.0 - 6.0 ADA THERAPEUTIC TARGET < 7.0 ACTION SUGGESTED > 7.0 Performed By: #### A 1C #### [facility] [address] [place] [address] Dr. Maria L Spear Glucose [Mass/Vol] 94 mg/dL Normal [facility] Comment on above: Performed By: #### A 1C #### [facility] [address] [place] [address] Dr. Maria L Spear HbA1c (Bld) [Mass fraction] 4.9 % Normal 4.5-6.2 [facility] Comment on above: Performed By: #### A 1C #### [facility] [address] [place] [address] Dr. Maria L Spear LIPID PROFILEon 01-23-2022 CHOL-HDL RATIO NORM SEE BELOW Normal [facility] Comment on above: Result Comment: 3.3 - 4.4 LOW RISK 4.4 - 7.1 AVERAGE RISK 7.1 - 11.0 MODERATE RISK >11.0 HIGH RISK Performed By: #### C MP, LIPID, TSH #### [facility] [address] [place] [address] Dr. Maria L Spear Cholesterol [Mass/Vol] 217 mg/dL Critically high <=200 [facility] Comment on above: Performed By: #### C MP, LIPID, TSH #### [facility] [address] [place] [address] Dr. Maria L Spear Cholesterol in HDL [Mass/Vol] 65 mg/dL Critically high 40-60 [facility] Comment on above: Performed By: #### C MP, LIPID, TSH #### [facility] [address] [place] [address] Dr. Maria L Spear Cholesterol in LDL [Mass/Vol] 137.4 mg/dL Normal [facility] Comment on above: Performed By: #### C MP, LIPID, TSH #### [facility] [address] [address] [address] Maria L Spear Cholesterol.total/Cho lesterol in HDL [Mass ratio] 3.3 {ratio} Normal [facility] Comment on above: Performed By: #### C MP, LIPID, TSH #### [facility] [address] [address] [address] Maria L Spear HDL NORMAL > or = 60 mg/dl - LOW CARDIOVASCULAR RISK <40 mg/dl - HIGH CARDIOVASCULAR RISK Normal [facility] Comment on above: Performed By: #### C MP, LIPID, TSH #### [facility] [address] [address] [address] Maria L Spear LDL CALC NORMAL SEE BELOW Normal [facility] Comment on above: Result Comment: <100 mg/dl OPTIMAL 100 - 129 mg/dl NEAR OR ABOVE OPTIMAL 130 - 159 mg/dl BORDERLINE HIGH 160 - 189 mg/dl HIGH >190 mg/dl VERY HIGH Performed By: #### C MP, LIPID, TSH #### [facility] [address] [address] [address] Maria L Spear Triglyceride [Mass/Vol] 73 mg/dL Normal <=150 [facility] Comment on above: Performed By: #### C MP, LIPID, TSH #### [facility] [address] [place] [address] Dr. Maria L Spear VLDL CALC 14.6 mg/dL Normal [facility] Comment on above: Performed By: #### C MP, LIPID, TSH #### [facility] [address] [address] [address] Maria L Spear PROF 14(COMP METB)on 022 Albumin [Mass/Vol] 3.9 g/dL Normal 3.4-5.0 [facility] Comment on above: Performed By: #### C MP, LIPID, TSH #### [facility] [address] [place] [address] Dr. Maria L Spear Albumin/Globulin [Mass ratio] 1.1 {ratio} Normal [facility] Comment on above: Performed By: #### C MP, LIPID, TSH #### [facility] [address] [address] [address] Maria L Spear ALP [Catalytic activity/Vol] 64 U/L Normal 46-116 [facility] Comment on above: Performed By: #### C MP, LIPID, TSH #### [facility] [address] [address] [address] Maria L Spear ALT [Catalytic activity/Vol] 34 U/L Normal 14-59 [facility] Comment on above: Performed By: #### C MP, LIPID, TSH #### [facility] [address] [address] [address] Maria L Spear Anion gap [Moles/Vol] 11.7 mmol/L Normal [facility] Comment on above: Performed By: #### C MP, LIPID, TSH #### [facility] [address] [address] [address] Maria L Spear AST [Catalytic activity/Vol] 22 U/L Normal 15-37 [facility] Comment on above: Performed By: #### C MP, LIPID, TSH #### [facility] [address] [address] [address] Maria L Spear Bilirubin [Mass/Vol] 0.6 mg/dL Normal 0.2-1.0 [facility] Comment on above: Performed By: #### C MP, LIPID, TSH #### [facility] [address] [address] [address] Maria L Spear Calcium [Mass/Vol] 8.9 mg/dL Normal 8.5-10.1 [facility] Comment on above: Performed By: #### C MP, LIPID, TSH #### [facility] [address] [address] [address] Maria L Spear Chloride [Moles/Vol] 102 mmol/L Normal 98-107 [facility] Comment on above: Performed By: #### C MP, LIPID, TSH #### [facility] [address] [address] [address] Maria L Spear CO2 [Moles/Vol] 28.4 mmol/L Normal 21.0-32.0 [facility] Comment on above: Performed By: #### C MP, LIPID, TSH #### [facility] [address] [address] [address] Maria L Spear Creatinine [Mass/Vol] 0.77 mg/dL Normal 0.55-1.02 [facility] Comment on above: Performed By: #### C MP, LIPID, TSH #### [facility] [address] [address] [address] Maria L Spear EGFR-AF [place]OREAN >60 Normal >=60 [facility] Comment on above: Performed By: #### C MP, LIPID, TSH #### [facility] [address] [address] [address] Maria L Spear EGFR-NON AF [place]OREAN >60 Normal >=60 [facility] Comment on above: Performed By: #### C MP, LIPID, TSH #### [facility] [address] [address] [address] Maria L Spear Globulin (S) [Mass/Vol] 3.5 g/dL Normal [facility] Comment on above: Performed By: #### C MP, LIPID, TSH #### [facility] [address] [address] [address] Maria L Spear Glucose [Mass/Vol] 104 mg/dL Normal 74-106 [facility] Comment on above: Performed By: #### C MP, LIPID, TSH #### [facility] [address] [address] [address] Maria L Spear Potassium [Moles/Vol] 4.1 mmol/L Normal 3.5-5.1 [facility] Comment on above: Performed By: #### C MP, LIPID, TSH #### [facility] [address] [address] [address] Maria L Spear Protein [Mass/Vol] 7.4 g/dL Normal 6.4-8.2 [facility] Comment on above: Performed By: #### C MP, LIPID, TSH #### [facility] [address] [address] [address] Maria L Spear Sodium [Moles/Vol] 138 mmol/L Normal 136-145 [facility] Comment on above: Performed By: #### C MP, LIPID, TSH #### [facility] [address] [address] [address] Maria L Spear Urea nitrogen [Mass/Vol] 13.0 mg/dL Normal 7.0-18.0 [facility] Comment on above: Performed By: #### C MP, LIPID, TSH #### [facility] [address] [address] [address] Maria L Spear Urea nitrogen/Creatinine [Mass ratio] 16.9 mg/mg Normal [facility] Comment on above: Performed By: #### C MP, LIPID, TSH #### [facility] [address] [address] [address] Maria L Spear TSHon 01-23-2022 TSH 2.191 uIU/mL Normal 0.358-3.740 [facility] Comment on above: Performed By: #### C MP, LIPID, TSH #### [facility] [address] [address] [address] Maria L Spear Vital Signs Date Time Vital Sign Value Performing Clinician Faci lity 11-30-2023 09:58-0400 Body height 160.02 cm [facility] 11-30-2023 09:58-0400 Body mass index (BMI) [Ratio] 23.6 kg/m2 [facility] 11-30-2023 09:58-0400 Body weight 60.32 kg [facility] 11-30-2023 09:58-0400 Diastolic blood pressure 87 mm[Hg] [facility] 11-30-2023 09:58-0400 Heart rate 92 /min [facility] 11-30-2023 09:58-0400 Systolic blood pressure 131 mm[Hg] [facility] 01-26-2023 09:00-0400 Body height 160.02 cm Rachna Arceo Other [facility] Other 01-26-2023 09:00-0400 Body mass index (BMI) [Ratio] 23.2 kg/m2 Rachna Arceo Other [facility] Other 01-26-2023 09:00-0400 Body weight 59.42 kg Rachna Arceo Other [facility] Other 01-26-2023 09:00-0400 Diastolic blood pressure 72 mm[Hg] Rachna Arceo Other [facility] Other 01-26-2023 09:00-0400 Systolic blood pressure 118 mm[Hg] Rachna Arceo Other [facility] Other Encounters Encounter Date Encounter Type Care Provider Facility Start: 12-24-2023 End: 12-24-2023 ambulatory JUAN TRACY Not Available Start: 11-30-2023 Patient encounter status [facility] Start: 11-30-2023 End: 11-30-2023 ambulatory [facility] Work Phone: Start: 11-30-2023 End: 11-30-2023 Encounter for general adult medical examination without abnormal findings [facility] Start: 11-30-2023 End: 11-30-2023 Patient encounter procedure [facility] Physician [facility] Work Phone: Start: 09-04-2023 Non-patient / Non-visit [facility] Physician [facility] Work Phone: Start: 01-26-2023 End: 01-26-2023 ambulatory Rachna Arceo Other [facility] Other Start: 01-26-2023 Encounter for genera l adult medical examination without abnormal findings Rachna Arceo [facility] Start: 01-26-2023 Periodic preventive med est patient 40-64yrs Rachna Arceo [facility] Start: 01-26-2023 Telephone encounter Rachna Arceo [facility] Start: 04-10-2022 End: 04-11-[address] ALONDRA BANERJEE Facility:[facility] Start: 01-31-2022 End: 02-01-[address] RACHNA ARCEO Facility:[facility] Start: 01-24-2022 Encounter for genera l adult medical examination without abnormal findings DR DOCTOR OLSEN [facility] Start: 01-23-2022 End: 01-24-[address] RACHNA ARCEO Facility:[facility] Start: 01-23-2022 End: 01-24-2022 Encounter for general adult medical examination without abnormal findings DR RACHNA ARCEO Facility:[facility] Start: 12-26-2021 Adult health examination Joaquina Arceo Other [facility] Other Start: 01-19-2020 End: 01-05-2020 Gynecological examination normal Rachna Arceo Other [facility] Other Procedures Date Procedure Procedure Detail Performing [...] lic 2000 panel - Serum or Plasma [facility] enter MG Breast - bilateral Screening [facility] Payers Date Payer Category Payer [facility] [id number] 2019 Unknown [id number] 1970 Unknown [id number] 1968 Unknown [id number] 1968 Unknown [id number] 1959 Self-pay Unknown [id number] Social History Date Type Detail Facility Unknown if ever smoked [facility] Other Sex Assigned At Sex Assigned At Bir th [facility] Other Start: 1970 Sex Assigned At Female F [facility] Evaluation note 01-26-2023 Note Date & Type [...] amount of d/c and irritation present today. [facility] Other Evaluation note Note Date & Type Note Facility Evaluation note No Information [facility] Other Evaluation note Note Date & Type Note Facility Evaluation note Diagnosis Onset Date Screening mammogram for breast cancer acute Wellness examination [facility] Work Phone: History general Narrative - [...] : Inactive, Surgical History Problem Title : [facility] - Dr. aJimes , Problem Status : Active, Surgical History Problem Title : Vari thena/microfoam chemical ablation, Problem Status : Active, Attribute Title : Inpatient, [facility] Other Summary Purpose Family History No Family [...] and content) DATE CREATED AUTHOR 04/11/2022 [facility] DATE CREATED AUTHOR AUTHOR'S ORGANIZ ATION 12/31/2023 [facility] EPIC REASON FOR VISIT (unrecogniz [...] BE BASED ON THE PRIMARY CLINICAL RECORDS. [email or web address] provides no warranty or guarantee of the accuracy or completeness of information in this document.
== END 2024-02-09 09:45 | disposition home or self-care (01) ==
LOC: MAMMO 09:44
PROVIDERS: PCP Family Medicine; Visit Provider Family Medicine
DX: Z00.00 Encounter for general adult medical examination without abnormal findings (principal); Z12.31 Encounter for screening mammogram for malignant neoplasm of breast; Z80.1 Family history of malignant neoplasm of trachea, bronchus and lung
CPT/HCPCS: 36415; 77063; 77067; 80053; 80061; 84443; 85025

== ENCOUNTER 2025-02-23 12:56 | Outpatient (OUT) | payer BC, SELFPAY ==
--- OUTSIDE RECORDS SUMMARY | 2025-02-23 12:58 | XMS_ITS | Clinical Summary ---
Author Organization [facility] Address [address], [address] [place] [address] Care Team Providers Care Gear Repair Supervisor Name Role Phone Darrell Garay MD Primary Care Provider + Social History Tobacco Use Types Packs/Day Years Used Date Smoking Tobacco: Never Assessed Comments Unknown Sex and Gender Information Value Date Recorded Sex Assigned at Not on file Legal Sex Female 11:38 PM EST Gender Identity Not on file Sexual Orientation Not on file Plan of Treatment Not on file Care Teams Gear Repair Supervisor Relationship Specialty Start Date End Date Darrell Garay MD PCP - General 12/24/11
--- NOTE | 2025-02-23 12:59 | MM_ITS ---
Patient Name: ADELAIDE HERNANDEZ MR#: [id number] : 1970 Exam Date: 02/23/2025 Ordering Doctor: DR LUIS ARCEO M.D. RADIOLOGY REPORT PROCEDURE: MM TOMOSYNTHESIS SCREENING BI COMPARISON: MM TOMOSYNTHESIS SCREENING BI, 02/09/2024. MM TOMOSYNTHESIS SCREENING BI, 02/03/2023. MG MAMM SCREEN 3D SARATH CAD, 01/31/2022. MG MAMM SARATH SCRN W CAD DIG, 03/30/2014. INDICATIONS: Screening Calculator Name NCI Breast Cancer Risk Assessment Tool 5 Year Breast Cancer Risk 1.00% Lifetime Breast Cancer Risk 6.60% Personal Breast Cancer No Personal Ovarian Cancer No Treatments None Family Cancers Father with lung cancer at age 56. LOCATION: [facility] BREAST COMPOSITION: The breasts are heterogeneously dense, which may obscure small masses. FINDINGS: DIAGNOSTIC CATEGORY 1--NEGATIVE. RIGHT BREAST: No significant suspicious finding. LEFT BREAST: No significant suspicious finding. RECOMMENDATIONS: ROUTINE MAMMOGRAM AND CLINICAL EVALUATION IN 12 MONTHS. Dictated by: Duc Lutz DO on 02/23/2025 at 15:27 Approved by: Duc Lutz DO on 02/23/2025 at 15:28
--- OUTSIDE RECORDS SUMMARY | 2025-02-23 13:05 | XMS_ITS | CCD ---
Author Organization [facility] Care Team Providers Care Car Oiler Name Role Phone DR RACHNA ARCEO Primary Care Unavailable MIS, DR LEONARD Attending Unavailable MISC, DR LEONARD Admitting Unavailable ADIS, DR RACHNA Mccurdy Consulting Unavailable ADIS, DR RACHNA Mccurdy Primary Care Unavailable ZIEDE, DR ANISH Almendarez Consulting Unavailable ADIS, DR RACHNA Mccurdy Admitting Unavailable ADIS, DR RACHNA Mccurdy Attending Unavailable ADIS, DR RACHNA Mccurdy Consulting Unavailable LAVONNE, DR CANTU Attending Unavailable LAVONNE, DR CANTU Consulting Unavailable LAVONNE, DR CANTU Admitting Unavailable ADIS, DR RACHNA Mccurdy Primary Care Unavailable Rachna Arceo JUAN TRACY Attending Unavailable Rachna Arceo MD Primary Care Provider [phone] Rachna Arceo MD Attending Provider [phone] Allergies Allergy Classification Reported Allergen(s) Allergy Type Date of Onset Reaction(s) Facility (2 sources) patient allergy list reviewed by nurse or physicia Propensity to adverse reactions Comment:Done [employer] Other (2 sources) Allergies Reconciled Propensity to adverse reactions Unknown [employer] Other Medications Current Medications Medication Drug Class(es) Dates Sig (Normalized) Sig (Original) cloNIDine hydrochloride 0.1 mg oral tablet (10 sources) Central alpha-2 Adrenergic Agonist Start: 03-09-2024 take 1 tablet by mouth once daily Clonidine Hcl 0.1 mg tablet Active 0 .ROUTE .COMPLEX March 09, 2024 1:21pm TAKE 1 TABLET BY MOUTH DAILY Complies with drug therapy Start: 09-04-2023 End: 03-09-2024 take 1 tablet by mouth once daily Clonidine Hcl 0.1 mg tablet Discontinued 0.1 MG PO Daily September 24, 2023 3:42pm March 09, 2024 1:22pm [employer]: TAKE 1 TABLET BY MOUTH EVERY DAY; Note: Source Status: Start; Refills: 3; Qty: 90 Tablet; Provider: Adis Briscoe ( ) Start: 02-12-2022 take 1 tablet by jordyn th once daily cloNIDine HCl 0.1MG cloNIDine HCl 0.1MG, 1 (one) Tablet daily # 90, 02/12/2022, Ref. x3. Active Oral daily for 90 *Pick strength-form from [employer] for eRX* Jan, Active escitalopram 20 mg oral tablet (10 sources) Serotonin Reuptake Inhibitor Start: 03-09-2024 take 1 tablet by mouth once daily Escitalopram Oxalate 20 mg tablet Active 0 .ROUTE .COMPLEX March 09, 2024 1:21pm TAKE 1 TABLET BY MOUTH DAILY Complies with drug therapy Start: 09-04-2023 End: 03-09-2024 take 1 tablet by mouth once daily Escitalopram Oxalate 20 mg tablet Discontinued 20 MG PO Daily September 24, 2023 3:43pm March 09, 2024 1:22pm [employer]: TAKE 1 TABLET BY MOUTH EVERY DAY; Note: Source Status: Start; Refills: 3; Qty: 90 Tablet; Provider: Adis Briscoe ( ) Start: 02-21-2022 take 1 tablet by jordyn th once daily Lexapro 20MG Lexapro 20MG, 1 (one) Tablet daily # 90, 02/21/2022, Ref. x3. Active Oral daily for 90 *Pick strength-form from [employer] for eRX* Feb, Active fluconazole 150 mg oral tablet (2 sources) Azole Antifungal Diflucan 150 MG 1 tablet Orally for 10 days Active ibuprofen 800 mg oral tablet (12 sources) Nonsteroidal Anti-inflammatory Drug Start: End: take 1 tablet by mouth three times daily as needed Ibuprofen 800 mg tablet Active 0 .ROUTE .COMPLEX November 14, 2024 4:18pm TAKE 1 TABLET BY MOUTH 3 TIMES DAILY NEEDED Complies with drug therapy Start: 09-04-2023 End: 11-25-2023 take 1 tablet by mouth three times daily as needed Ibuprofen 800 mg tablet Discontinued 800 MG PO Three times daily September 24, 2023 3:43pm November 25, 2023 1:02pm [employer]: Ibuprofen 800MG, 1 (one) Tablet three times daily, as needed # 270, 01/02/2022, Ref. x3. Active Oral three times daily, as needed; Note: Source Status: Taking*Pick strength-form from [employer] for eRX*; Refills: 270; Provider: Adis Briscoe ( ) Start: 01-02-2022 take 1 tablet by jordyn th three times daily as needed Ibuprofen 800MG Ibuprofen 800MG, 1 (one) Tablet three times daily, as needed # 270, 01/02/2022, Ref. x3. Active Oral three times daily, as needed for 90 *Pick strength-form from [employer] for eRX* Dec, Active losartan potassium 100 mg oral tablet (10 sources) Angiotensin 2 Receptor Shoaib Start: 03-09-2024 take 1 tablet by mouth once daily Losartan 100 mg tablet Active 0 .ROUTE .COMPLEX March 09, 2024 1:21pm TAKE 1 TABLET BY MOUTH DAILY Complies with drug therapy Start: 09-04-2023 End: 03-09-2024 take 1 tablet by mouth once daily Losartan 100 mg tablet Discontinued 100 MG PO Daily September 24, 2023 3:43pm March 09, 2024 1:22pm Start: 01-22-2021 take 1 tablet by jordyn th once daily Losartan Potassium 100MG Losartan Potassium 100MG, 1 (one) Tablet daily # 90, 01/22/2021, Ref. x3. Active Oral daily for 90 *Pick strength-form from [employer] for eRX* Jan, Active Multivitamin preparation (2 sources) Start: 02-12-2022 Multivitamin Multivitamin( Oral 1 daily ) Active -Hx Entry Oral daily for 0 *Pick strength-form from [employer] for eRX* Jan, Active pantoprazole 40 mg delayed release oral tablet (8 sources) Proton Pump Inhibitor Start: 06-23-2024 take 1 tablet by mouth once daily Pantoprazole 40 mg tablet,delayed release (DR/EC) Active 0 .ROUTE .COMPLEX June 23, 2024 1:38pm TAKE 1 TABLET BY MOUTH DAILY Complies with drug therapy Start: 09-04-2023 End: 06-23-2024 take 1 tablet by mouth once daily Pantoprazole 40 mg tablet,delayed release (DR/EC) Discontinued 40 MG PO Daily September 24, 2023 3:43pm June 23, 2024 1:38pm [employer]: TAKE 1 TABLET BY MOUTH EVERY DAY FOR 90 DAYS; Note: Source Status: Start; Refills: 3; Qty: 90 Tablet; Provider: Adis Briscoe ( ) take 1 tablet by ojrdyn th every twenty-four hours Pantoprazole Sodium 40 MG 1 tablet Orally Once a day for 90 days Active temazepam 15 mg oral capsule (2 sources) Benzodiazepine Start: 03-25-2024 take 1 capsule by mouth once daily at bedtime as needed for sleep Temazepam (Restoril) 15 mg capsule Active 15 MG PO Daily at bedtime as needed for sleep March 25, 2024 12:00am Complies with drug therapy verapamil hydrochloride 120 mg extended release oral tablet (10 sources) Calcium Channel Shoaib Start: 03-09-2024 take 1 tablet by mouth once daily Verapamil 120 mg tablet extended release Active 0 .ROUTE .COMPLEX March 09, 2024 1:21pm TAKE 1 TABLET BY MOUTH DAILY Complies with drug therapy Start: 09-04-2023 End: 03-09-2024 take 1 tablet by mouth once daily Verapamil 120 mg tablet extended release Discontinued 120 MG PO Daily September 24, 2023 3:43pm March 09, 2024 1:22pm [employer]: TAKE 1 TABLET BY MOUTH EVERY DAY; Note: Source Status: Start; Refills: 3; Qty: 90 Tablet; Provider: Adis Briscoe ( ) Start: 02-12-2022 take 1 tablet by jordyn th once daily Verapamil HCl ER 120MG Verapamil HCl ER 120MG, 1 Tablet daily # 90, 02/12/2022, Ref. x3. Active Oral daily for 90 *Pick strength-form from [employer] for eRX* Jan, Active Completed/Discontinued Medications Medication Drug Class(es) Dates Sig (Normalized) Sig (Original) ALPRAZolam 0.25 mg oral tablet (2 sources) Benzodiazepine Start: 01-13-2024 End: 03-25-2024 take 1 tablet by mouth once daily at bedtime as needed for anxiety Alprazolam 0.25 mg tablet Discontinued 0.25 MG PO Daily at bedtime as needed for anxiety 10 January 13, 2024 12:00am March 25, 2024 11:11am doxycycline hyclate 50 mg oral tablet (2 sources) Tetracycline-class Drug Start: 01-13-2024 End: 02-01-2025 take 1 tablet by mouth once daily Doxycycline Hyclate 50 mg tablet Discontinued 50 MG PO Daily January 13, 2024 12:00am February 01, 2025 8:29am zolpidem tartrate 5 mg oral tablet (2 sources) gamma-Aminobutyric Acid-ergic Agonist Start: 01-13-2024 End: 03-25-2024 take 1 tablet by mouth once daily at bedtime as needed Zolpidem 5 mg tablet Discontinued 5 MG PO Daily at bedtime as needed for insomnia 03 24January 13, 2024 12:00am March 25, 2024 11:12am Problems Active Problems Problem Classification Problem Date Documented Da te Episodic/Chronic Anxiety disorders (4 sources) Anxiety disorder; Translations: [Anxiety disorder, unspecified] 12-07-2023 Chronic Complications of surgical procedures or medical care (2 sources) Symptomatic postprocedural ovarian failure; 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] Chronic Complications of surgical procedures or medical care (2 sources) Other complications of procedures, not elsewhere classified, initial encounter; Translations: [Oth complications of procedures, NEC, init] Episodic Essential hypertension (6 sources) Essential hypertension; Translations: [Essential (primary) hypertension] Onset: 11-30-2023 Chronic Menopausal disorders (4 sources) Premenopausal menorrhagia; Translations: [Excessive bleeding in the premenopausal period] Resolved: Chronic Miscellaneous mental health disorders (2 sources) [...] conditions (not mental disorders or infectious disease) (11 sources) Encounter for screening mammogram for malignant [...] Translations: [Acquired absence of ovaries, unilateral] Episodic Residual codes; unclassified (2 sources) Insomnia; Translations: [Insomnia, unspecified] 11-30-2023 Episodic Residual codes; unclassified (1 source) Insomnia, unspecified; Translations: [Insomnia, unspecified] 03-25-2024 Episodic Varicose veins of lower extremity (2 [...] Results Test Name Value Interpretation Reference Range Facility Basophils Auto (Bld) [#/Vol] on 02-09-2024 Basophils (Bld) [#/Vol] 0.1 10 3/uL 0.0-0.1 [facility] Basophils/100 WBC Auto (Bld) on 02-09-2024 Basophils/100 WBC (Bld) 1.0 % 0.2-2.0 [facility] Cholesterol in LDL Calc [Mas s/Vol]on 02-09-2024 Cholesterol in LDL [Mass/Vol] 134.0 mg/dL [facility] Comment on above: <100 mg/dl [id number] 0-129 mg/dl NEAR OR ABOVE [id number] mg/dl BORDERLINE [id number] mg/dl HIGH>190 mg/dl VERY HIGH Cholesterol in VLDL Calc [Ma ss/Vol]on 02-09-2024 Cholesterol in VLDL [Mass/Vol] 12.2 mg/dL [facility] Eosinophils/100 WBC Auto (Bl d)on 02-09-2024 Eosinophils/100 WBC (Bld) 1.6 % 0.9-7.0 [facility] Erythrocyte distribution wid th Auto (RBC) [Ratio]on 02-09-2024 Erythrocyte distribution width (RBC) [Ratio] 11.9 % 11.0-15.0 [facility] Estimated glomerular filtrat ion rate (GFR) non- Americanon 02-09-2024 GFR/1.73 sq M.predicted among non-blacks MDRD (S/P/Bld) [Vol rate/Area] mL/min/{1.73_m2} >=60 [facility] Globulin Calc (S) [Mass/Vol] on 02-09-2024 Globulin (S) [Mass/Vol] 3.7 g/dL [facility] Hematocrit Auto (Bld) [Volum e fraction]on 02-09-2024 Hematocrit (Bld) [Volume fraction] 41.5 % 36.0-48.0 [facility] Hemoglobin [Mass/volume] in Bloodon 02-09-2024 Hemoglobin (Bld) [Mass/Vol] 14.2 g/dL 12.0-16.0 [facility] Laboratory - Chemistry and C hemistry - challengeon 02-09-2024 Albumin [Mass/Vol] 4.0 g/dL 3.4-5.0 [facility] ALP [Catalytic activity/Vol] 59 U/L 46-116 [facility] ALT [Catalytic activity/Vol] 22 U/L 14-59 [facility] AST [Catalytic activity/Vol] 17 U/L 15-37 [facility] Bilirubin [Mass/Vol] 0.6 mg/dL 0.2-1.0 [facility] Calcium [Mass/Vol] 9.1 mg/dL 8.5-10.1 [facility] Chloride [Moles/Vol] 102 mmol/L 98-107 [facility] Cholesterol [Mass/Vol] 244 mg/dL High <=200 [facility] Cholesterol in HDL [Mass/Vol] 98 mg/dL High 40-60 [facility] Comment on above: > or =60 mg/dl - LOW CARDIOVASCULAR RISK<40 mg/dl - HIGH CARDIOVASCULAR RISK CO2 [Moles/Vol] 24.4 mmol/L 21.0-32.0 [facility] Creatinine [Mass/Vol] 0.79 mg/dL 0.55-1.02 [facility] GFR/1.73 sq M.predicted MDRD (S/P/Bld) [Vol rate/Area] mL/min/{1.73_m2} >=60 [facility] Glucose [Mass/Vol] 102 mg/dL 74-106 [facility] Potassium [Moles/Vol] 4.2 mmol/L 3.5-5.1 [facility] Protein [Mass/Vol] 7.7 g/dL 6.4-8.2 [facility] Sodium [Moles/Vol] 138 mmol/L 136-145 [facility] Triglyceride [Mass/Vol] 61 mg/dL <=150 [facility] TSH Qn 0.878 m[IU]/L 0.358-3.740 [facility] Urea nitrogen [Mass/Vol] 15.0 mg/dL 7.0-18.0 [facility] Urea nitrogen/Creatinine [Mass ratio] 19.0 mg/mg [facility] Laboratory - Hematology and Cell countson 02-09-2024 Immature granulocytes/100 WBC (Bld) 0.4 % 0.0-0.5 [facility] Leukocytes [#/volume] correc guillermo for nucleated erythrocytes in Blood by Automated counon 02-09-2024 WBC corrected for nucl RBC Auto (Bld) [#/Vol] 4.9 10 3/uL 4.0-11.0 [facility] Lymphocytes Auto (Bld) [#/Vo l]on 02-09-2024 Lymphocytes (Bld) [#/Vol] 1.3 10 3/uL 1.2-3.8 [facility] Lymphocytes/100 WBC Auto (Bl d)on 02-09-2024 Lymphocytes/100 WBC (Bld) 27.5 % 20.5-60.0 [facility] MCH Auto (RBC) [Entitic mass ]on 02-09-2024 MCH (RBC) [Entitic mass] 34.5 pg High 26.7-34.0 [facility] MCHC Auto (RBC) [Mass/Vol]on 02-09-2024 MCHC (RBC) [Mass/Vol] 34.2 g/dL 29.9-35.2 [facility] MCV Auto (RBC) [Entitic vol] on 02-09-2024 MCV (RBC) [Entitic vol] 101.0 fL High 81.0-99.0 [facility] Monocytes Auto (Bld) [#/Vol] on 02-09-2024 Monocytes (Bld) [#/Vol] 0.5 10 3/uL 0.3-0.8 [facility] Monocytes/100 WBC Auto (Bld) on 02-09-2024 Monocytes/100 WBC (Bld) 9.6 % 1.7-12.0 [facility] Neutrophils Auto (Bld) [#/Vo l]on 02-09-2024 Neutrophils (Bld) [#/Vol] 2.9 10 3/uL 1.4-6.5 [facility] Neutrophils/100 WBC Auto (Bl d)on 02-09-2024 Neutrophils/100 WBC (Bld) 59.9 % 43.0-75.0 [facility] No Panel Informationon 02-08 Eosinophils # (Auto) 0.1 10 3/uL 0.0-0.7 [facility] Immature Granulocyte # (Auto) 0.02 10 3/uL 0.00-0.03 [facility] Platelet mean volume Auto (B ld) [Entitic vol]on 02-09-2024 Platelet mean volume (Bld) [Entitic vol] 9.8 fL 9.5-13.5 [facility] Platelets Auto (Bld) [#/Vol] on 02-09-2024 Platelets (Bld) [#/Vol] 284 10 3/uL 150-450 [facility] RBC Auto (Bld) [#/Vol]on RBC (Bld) [#/Vol] 4.11 10 6/uL Low 4.20-5.40 [facility] Serum or plasma albumin/glob ulin mass ratioon 02-09-2024 Albumin/Globulin [Mass ratio] 1.1 {ratio} [facility] Serum or plasma anion gap de terminationon 02-09-2024 Anion gap [Moles/Vol] 15.8 mmol/L [facility] Serum or plasma total choles terol/high density lipoprotein (HDL) cholesterol mass tri 02-09-2024 Cholesterol.total/Cho lesterol in HDL [Mass ratio] 2.5 {ratio} [facility] Comment on above: 3.3 - 4.4 LOW RISK4. 4 - 7.1 AVERAGE RISK7.1 - 11.0 MODERATE RISK>11.0 HIGH RISK MG MAMM SCREEN 3D SARATH CADon 01-31-2022 MG MAMM SCREEN 3D SARATH CAD Patient: CORINA CALDERON Exam Date: 01/31/2022 : 1970 Gender:F Ordering : DR RACHNA ARCEO M.D. Admission #: [id number] Family : Order #: [id number] CLICK HERE TO VIEW EXAM RADIOLOGY REPORT [...] lung cancer at age 54. LOCATION: [facility] BREAST COMPOSITION: Extremely dense, which lowers the [...] M.D. on 01/31/2022 at 12:10 Normal [facility] CBC AUTO DIFFon 01-23-2022 BASO # 0.1 103/ul Normal 0.0-0.1 [facility] Comment on above: Performed By: #### C BC #### [facility] [address] [address] [address] Maria L Spear Basophils/100 WBC (Bld) 0.8 % Normal 0.2-2.0 [facility] Comment on above: Performed By: #### C BC #### [facility] [address] [address] [address] Maria L Spear EO # 0.2 103/ul Normal 0.0-0.7 [facility] Comment on above: Performed By: #### C BC #### [facility] [address] [address] [address] Maria L Spear Eosinophils/100 WBC (Bld) 2.5 % Normal 0.9-7.0 [facility] Comment on above: Performed By: #### C BC #### [facility] [address] [address] [address] Maria L Spear Erythrocyte distribution width (RBC) [Ratio] 12.2 % Normal 11.0-15.0 [facility] Comment on above: Performed By: #### C BC #### [facility] [address] [address] [address] Maria L Spear Hematocrit (Bld) [Volume fraction] 44.7 % Normal 36.0-48.0 [facility] Comment on above: Performed By: #### C BC #### [facility] [address] [address] [address] Maria L Spear Hemoglobin (Bld) [Mass/Vol] 15.2 g/dL Normal 12.0-16.0 [facility] Comment on above: Performed By: #### C BC #### [facility] [address] [address] [address] Maria L Spear IG # 0.02 10e3/ul Normal 0.00-0.03 [facility] Comment on above: Performed By: #### C BC #### [facility] [address] [place] [address] Dr. Maria L Spear IG % 0.3 % Normal 0.0-0.5 [facility] Comment on above: Performed By: #### C BC #### [facility] [address] [place] [address] Dr. Maria L Spear LYMPH # 1.6 103/ul Normal 1.2-3.8 [facility] Comment on above: Performed By: #### C BC #### [facility] [address] [place] [address] Dr. Maria L Spear Lymphocytes/100 WBC (Bld) 26.9 % Normal 20.5-60.0 [facility] Comment on above: Performed By: #### C BC #### [facility] [address] [place] [address] Dr. Maria L Spear MANUAL DIFF REQ NO Normal [facility] Comment on above: Performed By: #### C BC #### [facility] [address] [place] [address] Dr. Maria L Spear MCH (RBC) [Entitic mass] 34.9 pg Critically high 26.7-34.0 [facility] Comment on above: Performed By: #### C BC #### [facility] [address] [address] [address] Maria L Spear MCHC (RBC) [Mass/Vol] 34.0 g/dL Normal 29.9-35.2 [facility] Comment on above: Performed By: #### C BC #### [facility] [address] [address] [address] Maria L Spear MCV (RBC) [Entitic vol] 102.8 fL Critically high 81.0-99.0 [facility] Comment on above: Performed By: #### C BC #### [facility] [address] [address] [address] Maria L Spear MONO # 0.6 103/ul Normal 0.3-0.8 [facility] Comment on above: Performed By: #### C BC #### [facility] [address] [place] [address] Dr. Maria L Spear Monocytes/100 WBC (Bld) 10.7 % Normal 1.7-12.0 [facility] Comment on above: Performed By: #### C BC #### [facility] [address] [place] [address] Dr. Maria L Spear NEUT # 3.5 103/ul Normal 1.4-6.5 [facility] Comment on above: Performed By: #### C BC #### [facility] [address] [place] [address] Dr. Maria L Spear Neutrophils/100 WBC (Bld) 58.8 % Normal 43.0-75.0 [facility] Comment on above: Performed By: #### C BC #### [facility] [address] [place] [address] Dr. Maria L Spear Platelet mean volume (Bld) [Entitic vol] 9.8 fL Normal 9.5-13.5 [facility] Comment on above: Performed By: #### C BC #### [facility] [address] [place] [address] Dr. Maria L Spear PLT 281 103/ul Normal 150-450 [facility] Comment on above: Performed By: #### C BC #### [facility] [address] [address] [address] Maria L Spear RBC 4.35 106/ul Normal 4.20-5.40 [facility] Comment on above: Performed By: #### C BC #### [facility] [address] [place] [address] Dr. Maria L Spear WBC 6.0 103/ul Normal 4.0-11.0 [facility] Comment on above: Performed By: #### C BC #### [facility] [address] [place] [address] Dr. Maria L Spear GLYCOHEMOGLOBIN A1Con 2021 ADA RECOMMENDATION SEE BELOW Normal [facility] Comment on above: Result Comment: ADA RECOMMENDED LIMIT 4.0 - 6.0 ADA THERAPEUTIC TARGET < 7.0 ACTION SUGGESTED > 7.0 Performed By: #### A 1C #### [facility] [address] [place] [address] Dr. Maria L Spear Glucose [Mass/Vol] 94 mg/dL Normal [facility] Comment on above: Performed By: #### A 1C #### [facility] [address] [place] [address] Dr. Maria L Spear HbA1c (Bld) [Mass fraction] 4.9 % Normal 4.5-6.2 [facility] Comment on above: Performed By: #### A 1C #### [facility] [address] [place] [address] Dr. Maria L Spear LIPID PROFILEon 01-23-2022 CHOL-HDL RATIO NORM SEE BELOW Normal [facility] Comment on above: Result Comment: 3.3 - 4.4 LOW RISK 4.4 - 7.1 AVERAGE RISK 7.1 - 11.0 MODERATE RISK >11.0 HIGH RISK Performed By: #### C MP, LIPID, TSH #### [facility] [address] [place] [address] Dr. Maria L Spear Cholesterol [Mass/Vol] 217 mg/dL Critically high <=200 [facility] Comment on above: Performed By: #### C MP, LIPID, TSH #### [facility] [address] [place] [address] Dr. Maria L Spear Cholesterol in HDL [Mass/Vol] 65 mg/dL Critically high 40-60 [facility] Comment on above: Performed By: #### C MP, LIPID, TSH #### [facility] [address] [address] [address] Maria L Spear Cholesterol in LDL [Mass/Vol] 137.4 mg/dL Normal [facility] Comment on above: Performed By: #### C MP, LIPID, TSH #### [facility] [address] [address] [address] Maria L Spear Cholesterol.total/Cho lesterol in HDL [Mass ratio] 3.3 {ratio} Normal [facility] Comment on above: Performed By: #### C MP, LIPID, TSH #### [facility] [address] [address] [address] Maria L Spear HDL NORMAL > or = 60 mg/dl - LOW CARDIOVASCULAR RISK <40 mg/dl - HIGH CARDIOVASCULAR RISK Normal [facility] Comment on above: Performed By: #### C MP, LIPID, TSH #### [facility] [address] [address] [address] Maria L Spear LDL CALC NORMAL SEE BELOW Normal [facility] Comment on above: Result Comment: <100 mg/dl OPTIMAL 100 - 129 mg/dl NEAR OR ABOVE OPTIMAL 130 - 159 mg/dl BORDERLINE HIGH 160 - 189 mg/dl HIGH >190 mg/dl VERY HIGH Performed By: #### C MP, LIPID, TSH #### [facility] [address] [address] [address] Maria L Spear Triglyceride [Mass/Vol] 73 mg/dL Normal <=150 [facility] Comment on above: Performed By: #### C MP, LIPID, TSH #### [facility] [address] [address] [address] Maria L Spear VLDL CALC 14.6 mg/dL Normal [facility] Comment on above: Performed By: #### C MP, LIPID, TSH #### [facility] [address] [address] [address] Maria L Spear PROF 14(COMP METB)on 022 Albumin [Mass/Vol] 3.9 g/dL Normal 3.4-5.0 [facility] Comment on above: Performed By: #### C MP, LIPID, TSH #### [facility] [address] [address] [address] Maria L Spear Albumin/Globulin [Mass ratio] 1.1 {ratio} Normal [facility] Comment on above: Performed By: #### C MP, LIPID, TSH #### [facility] [address] [address] [address] Maria L Spear ALP [Catalytic activity/Vol] 64 U/L Normal 46-116 [facility] Comment on above: Performed By: #### C MP, LIPID, TSH #### [facility] [address] [place] [address] Dr. Maria L Spear ALT [Catalytic activity/Vol] 34 U/L Normal 14-59 [facility] Comment on above: Performed By: #### C MP, LIPID, TSH #### [facility] [address] [place] [address] Dr. Maria L Spear Anion gap [Moles/Vol] 11.7 mmol/L Normal [facility] Comment on above: Performed By: #### C MP, LIPID, TSH #### [facility] [address] [place] [address] Dr. Maria L Spear AST [Catalytic activity/Vol] 22 U/L Normal 15-37 [facility] Comment on above: Performed By: #### C MP, LIPID, TSH #### [facility] [address] [place] [address] Dr. Maria L Spear Bilirubin [Mass/Vol] 0.6 mg/dL Normal 0.2-1.0 [facility] Comment on above: Performed By: #### C MP, LIPID, TSH #### [facility] [address] [place] [address] Dr. Maria L Spear Calcium [Mass/Vol] 8.9 mg/dL Normal 8.5-10.1 [facility] Comment on above: Performed By: #### C MP, LIPID, TSH #### [facility] [address] [place] [address] Dr. Maria L Spear Chloride [Moles/Vol] 102 mmol/L Normal 98-107 [facility] Comment on above: Performed By: #### C MP, LIPID, TSH #### [facility] [address] [place] [address] Dr. Maria L Spear CO2 [Moles/Vol] 28.4 mmol/L Normal 21.0-32.0 [facility] Comment on above: Performed By: #### C MP, LIPID, TSH #### [facility] [address] [address] [address] Maria L Spear Creatinine [Mass/Vol] 0.77 mg/dL Normal 0.55-1.02 [facility] Comment on above: Performed By: #### C MP, LIPID, TSH #### [facility] [address] [place] [address] Dr. Maria L Spear EGFR-AF [place] >60 Normal >=60 [facility] Comment on above: Performed By: #### C MP, LIPID, TSH #### [facility] [address] [place] [address] Dr. Maria L Spear EGFR-NON AF [place] >60 Normal >=60 [facility] Comment on above: Performed By: #### C MP, LIPID, TSH #### [facility] [address] [place] [address] Dr. Maria L Spear Globulin (S) [Mass/Vol] 3.5 g/dL Normal [facility] Comment on above: Performed By: #### C MP, LIPID, TSH #### [facility] [address] [place] [address] Dr. Maria L Spear Glucose [Mass/Vol] 104 mg/dL Normal 74-106 [facility] Comment on above: Performed By: #### C MP, LIPID, TSH #### [facility] [address] [place] [address] Dr. Maria L Spear Potassium [Moles/Vol] 4.1 mmol/L Normal 3.5-5.1 [facility] Comment on above: Performed By: #### C MP, LIPID, TSH #### [facility] [address] [place] [address] Dr. Maria L Spear Protein [Mass/Vol] 7.4 g/dL Normal 6.4-8.2 [facility] Comment on above: Performed By: #### C MP, LIPID, TSH #### [facility] [address] [address] [address] Maria L Spear Sodium [Moles/Vol] 138 mmol/L Normal 136-145 [facility] Comment on above: Performed By: #### C MP, LIPID, TSH #### [facility] [address] [place] [address] Dr. Maria L Spear Urea nitrogen [Mass/Vol] 13.0 mg/dL Normal 7.0-18.0 [facility] Comment on above: Performed By: #### C MP, LIPID, TSH #### [facility] [address] [place] [address] Dr. Maria L Spear Urea nitrogen/Creatinine [Mass ratio] 16.9 mg/mg Normal [facility] Comment on above: Performed By: #### C MP, LIPID, TSH #### [facility] [address] [place] [address] Dr. Maria L Spear TSHon 01-23-2022 TSH 2.191 uIU/mL Normal 0.358-3.740 [facility] Comment on above: Performed By: #### C MP, LIPID, TSH #### [facility] [address] [place] [address] Dr. Maria L Spear Vital Signs Date Time Vital Sign Value Performing Clinician Kevin laura 02-01-2025 08:28-040 Body height 157.48 cm Rachna Arceo MD Work Phone: [facility] 02-01-2025 [id number] Body mass index (BMI) [Ratio] 25.2 kg/m2 Rachna Arceo MD Work Phone: [facility] 02-01-2025 [id number] Body weight 62.59 kg Rachna Arceo MD Work Phone: [facility] 02-01-2025 08:28-0400 Diastolic blood pressure 78 mm[Hg] Rachna Arceo MD Work Phone: [facility] 02-01-2025 08:28-0400 Heart rate 82 /min Rachna Arceo MD Work Phone: [facility] 02-01-2025 08:28-0400 Systolic blood pressure 128 mm[Hg] Rachna Arceo MD Work Phone: [facility] 11-30-2023 09:58-0400 Body height 160.02 cm [facility] 11-30-2023 09:58-0400 Body mass index (BMI) [Ratio] 23.6 kg/m2 [facility] 11-30-2023 09:58-0400 Body weight 60.32 kg [facility] 11-30-2023 09:58-0400 Diastolic blood pressure 87 mm[Hg] [facility] 11-30-2023 09:58-0400 Heart rate 92 /min [facility] 11-30-2023 09:58-0400 Systolic blood pressure 131 mm[Hg] [facility] 01-26-2023 09:00-0400 Body height 160.02 cm Rachna Arceo Other [facility] Other 01-26-2023 09:00-0400 Body mass index (BMI) [Ratio] 23.2 kg/m2 Rachna Arceo Other [facility] Other 01-26-2023 09:00-0400 Body weight 59.42 kg Rachna Arceo Other [facility] [employer] [employer] Other 01-26-2023 09:00-0400 Diastolic blood pressure 72 mm[Hg] Rachna Arceo Other [facility] Other 01-26-2023 09:00-0400 Systolic blood pressure 118 mm[Hg] Rachna Arceo Other [facility] Other Encounters Encounter Date Encounter Type Care Provider Facility Start: 02-01-2025 End: 02-01-2025 ambulatory Rachna Arceo MD Work Phone: [facility] Work Phone: Start: 02-01-2025 End: 02-01-2025 Patient encounter procedure Rachna Arceo MD -[facility] Work Phone: Start: 02-01-2025 End: 02-01-2025 Patient encounter status Rachna Arceo MD [facility] Start: 03-25-2024 End: 03-25-2024 ambulatory [facility] Work Phone: Start: 03-25-2024 End: 03-25-2024 Patient encounter procedure [facility] Work Phone: Start: 02-09-2024 Non-patient / Non-visit [facility] Work Phone: Start: 12-24-2023 End: 12-24-2023 ambulatory JUAN TRACY Not Available Start: 11-30-2023 Patient encounter status [facility] Start: 11-30-2023 End: 11-30-2023 ambulatory [facility] Work Phone: Start: 11-30-2023 End: 11-30-2023 Encounter for general adult medical examination without abnormal findings [facility] Start: 11-30-2023 End: 11-30-2023 Patient encounter procedure [facility] Work Phone: Start: 09-04-2023 Non-patient / Non-visit [facility] Work Phone: Start: 01-26-2023 End: 01-26-2023 ambulatory Rachna Arceo Other [facility] Other Start: 01-26-2023 Encounter for genera l adult medical examination without abnormal findings Rachna Arceo [facility] Start: 01-26-2023 Periodic preventive med est patient 40-64yrs Rachna Arceo [facility] Start: 01-26-2023 Telephone encounter Rachna Arceo [facility] Start: 04-10-2022 End: 04-11-[address] ALONDRA BANERJEE Facility:[facility] Start: 01-31-2022 End: 02-01-[address] RACHNA ARCEO Facility:[facility] Start: 01-24-2022 Encounter for genera l adult medical [facility] Start: 01-23-2022 End: 01-24-[address] RACHNA ARCEO Facility:[facility] Start: 01-23-2022 End: 01-24-2022 Encounter for general adult medical examination without abnormal findings DR RACHNA ARCEO Facility:[facility] Start: 12-26-2021 Adult health examination Joaquina Arceo Other [employer] Other Start: 01-19-2020 End: 01-05-2020 Gynecological examination normal Rachna Arceo Other [employer] Other Procedures Date Procedure Procedure Detail Performing [...] Care Activity Detail Author Comprehensive metabo lic 1999 panel - Serum or Plasma [facility] enter Comprehensive metabo lic 1999 panel - Serum or Plasma [facility] enter MG Breast - bilateral Screening [facility] Payers Date Payer Category Payer [facility] [id number] 2019 Unknown [id number] 1970 Unknown [id number] [id number] 1968 Unknown [id number] 1968 Unknown [id number] 1959 Self-pay Unknown [id number] Social History Date Type Detail Facility Unknown if ever smoked [facility] [employer] Other Sex Assigned At Sex Assigned At [facility] Other Start: 1970 Sex Assigned At Female [facility] Tobacco smoking status NHIS Unknown if ever smoked [facility] Work Phone: Sex Female (finding) [facility] NEGATED: Highlighted row N [facility] Evaluation note 01-26-2023 Note Date & Type [...] amount of d/c and irritation present today. [employer] Other Evaluation note Note Date & Type Note Facility Evaluation note No Information [facility] [employer] Other Evaluation note Note Date & Type Note Facility Evaluation note Diagnosis Onset Date Screening mammogram for breast cancer acute Wellness examination acute [facility] Work Phone: Evaluation note Note Date & Type Note Facility Evaluation note Diagnosis Onset Date Insomnia acute [facility] Work Phone: Evaluation note Note Date & Type Note Facility Evaluation note Diagnosis Onset Date Resolution Wellness examination acute 2024 8:23am [facility] Work Phone: History general Narrative - Reported [...] history E&M, Problem Comment : Cerebral hemorrhage 2012 HTN Paroxysmal SVT, Problem Status : Active,, [...] : Active,, Medical History Problem Title : Yris quintero Reconciled, Problem Status : Active,, Medical History [...] : Inactive, Surgical History Problem Title : [facility] - Dr. Jaimes , Problem Status : Active, Surgical History Problem Title : Vari thena/microfoam chemical ablation, Problem Status : Active, Attribute Title : Inpatient, [employer] Other Reason for referral (narrative) Note Date & Type Note Facility Reason for referral (narrative) No reason for referral information available [facility] Work Phone: Summary Purpose Family History Relationship Condition Age at Onset Recorded Date/T sam father Malignant neoplasm Unknown Unknown Not Specified Heart disease Unknown Relationship Condition Age at Onset Recorded Date/T sam father Malignant neoplasm Unknown Unknown mother Heart disease Unknown Advance Directives Advance Directive Response Recorded Date/ Time Advance Directives No November 29 9:51am Chief Complaint and Reason for Visit Chief Complaint Amb Documentation wellness Reason for Visit Screening mammogram for breast cancer Wellness examination Chief Complaint Discuss Meds Reason for Visit Insomnia Chief Complaint Admit Date wellness February 01, 2025 8: 23am Reason for Visit Admit Date Wellness examination February 01, 2025 8 :23am Additional Source Comments INFORMATION SOURCE (unrecogn ized section and content) DATE CREATED AUTHOR 04/11/2022 [facility] DATE CREATED AUTHOR AUTHOR'S ORGANIZ ATION 12/31/2023 [facility] EPIC REASON FOR VISIT (unrecogniz ed section and content) [facility] Care Teams (unrecognized sec tion and content) Team Status: Active Member Role Status Dates Rachna Arceo MD Primary Care Provider Active Team Status: Inactive Member Role Status Dates Rachna Arceo MD Primary Care Provider Active Start: February 01, 2025 End: February 01, 2025 Rachna Arceo MD Attending Provider Active St art: February 01, 2025 End: February 01, 2025 Team Status: Active Member Role Status Dates Racnha Arceo MD Primary Care Provider Active Team Status: Active Member Role Status Dates Provider Conversion Primary Care Provider Active Start: September 04, 2023 Dionne Rangel LPN Attending Provider Active S tart: September 04, 2023 Team Status: Inactive Member Role Status Nava Arceo MD Primary Care Provide r, Attending Provider Active Start: November 30, 2023 End: November 30, 2023 Team Status: Active Member Role Status Nava Arceo MD Primary Care Provide r, Attending Provider Active Start: February 09, 2024 Team Status: Inactive Member Role Status Nava Arceo MD Primary Care Provide r, Attending Provider Active Start: March 25, 2024 End: March 25, 2024 Team Status: Inactive Member Role Status Nava Arceo MD Primary Care Provider Active Start: February 01, 2025 End: February 01, 2025 Rachna Arceo MD Attending Provider Active St art: February 01, 2025 End: February 01, 2025 Goals (unrecognized section and content) Goals may [...] BE BASED ON THE PRIMARY CLINICAL RECORDS. [employer] provides no warranty or guarantee of the accuracy or completeness of information in this document.
== END 2025-02-23 12:57 | disposition home or self-care (01) ==
LOC: MAMMO 12:56
PROVIDERS: PCP Family Medicine; Visit Provider Family Medicine
DX: Z12.31 Encounter for screening mammogram for malignant neoplasm of breast (principal); Z00.00 Encounter for general adult medical examination without abnormal findings; Z80.1 Family history of malignant neoplasm of trachea, bronchus and lung
CPT/HCPCS: 77063; 77067